=== PATIENT | male | born 1970 | race American Indian/Alaskan Native ===

== ENCOUNTER 2017-10-07 17:11 | Emergency (ER) | payer MEDICAID ==
[2017-10-07] MEDS ORDERED: NS 1,000 ML IV ONE (17:15)
--- NOTE | 2017-10-07 17:20 | EDPHY ---
HPI/HX/ROS/PE/MDM Narrative: CHIEF COMPLAINT: Vomiting, lightheaded, flank pain HPI: The patient is an anticoagulated 47 y/o male complaining of intermittent vomiting and right-sided flank pain for the last week worsening over the last day and specifically over the last 3 hours today. His medical history includes atrial flutter, CHF, and alcoholism. He also complains of right flank pain that feels "like a muscle spasm" and reports "pink" urine. He has some abdominal discomfort that he describes feeling "like I took too many aspirins." He denies chest pain, dyspnea, recent illness, recent trauma. REVIEW OF SYSTEMS: Aside from elements discussed in the HPI, a comprehensive 10-point review of systems was reviewed and is negative. PMH: Atrial flutter - Xarelto, CHF, alcoholism, non-ischemic cardiomyopathy with moderately reduced LV systolic function on cath 07/12/16. SOCIAL HISTORY: Last alcohol use 12 years ago, but mentions "nips" of alcohol getting on his skin from his friends. PCP: [facility], President And Chief Executive Officer: Dr. Simmons. Prior medical records reviewed including [facility] H&P 06/24/16. PHYSICAL EXAM: General:Patient is alert, in no acute distress. ENT:Eyes are normal to inspection. ENT inspection normal. Neck: Normal inspection. Full range of motion. Respiratory:No respiratory distress. Breath sounds normal bilaterally. Cardiovascular: Regular rate and rhythm. Strong peripheral pulses. Normal cap refill. Abdomen:The abdomen is nontender to palpation. There are no peritoneal signs. Back: No CVA tenderness, otherwise normal to inspection. No tenderness to palpation. Skin: Normal color. No rash. Warm and dry. Extremities: Normal appearance. Full range of motion. Neuro: Oriented x3. Normal motor function. Normal sensory function. ED Course: This is an anticoagulated 47 y/o male with atrial flutter and history of alcoholism complaining of a one-week history of intermittent vomiting and right- sided flank pain that worsened over the last day. He reports associated "pink" urine and has right CVA tenderness on exam. His abdomen is benign. Presentation could indicate kidney stone. Plan for IV, labs, UA, EKG, and symptom management. 500mL IV NS and 4mg IV Zofran ordered. The 12 lead EKG was interpreted by myself. Sinus rhythm with runs of PACs. Rate between 45-65. Compared to prior EKGs. See hard copy and/or "tracemaster" electronic copy for interpretation. Patient is continuing to vomiting. 10mg IV Reglan ordered. Abdominal CT shows nothing acute. Labs are largely unremarkable. Plan for PO challenge. Patient has been able to keep down water without issue and feels ready for discharge. He will be discharged with script for Zofran and standard care and follow up instructions. Return precautions discussed. MDM: This patient presents with paroxysms of loud vomiting of unknown etiology. His labs are unremarkable except for findings consistent with chronic liver disease - there is no evidence of pancreatitis. CTAP is negative for bowel obstruction or surgical process. Patients's symptoms controlled with IVNS and zofran and he is now able to eat and drink without difficulty. - Data Points Imaging: Discussed imaging studies w/ support services tech Radiologist, I viewed and interpreted images myself Laboratory Results: Laboratory Results 10/07/17 17:45 10/07/17 17:45 10/07/17 10/07/17 10/07/17 18:25 17:45 17:45 WBC 6.78 10^3/uL 10^3/uL (3.80-9.50) RBC 4.54 10^6/uL 10^6/uL (4.40-6.38) Hgb 13.9 g/dL g/dL (13.7-17.5) Hct 40.9 % % (40.0-51.0) MCV 90.1 fL fL (81.5-99.8) MCH 30.6 pg pg (27.9-34.1) MCHC 34.0 g/dL g/dL (32.4-36.7) RDW 15.4 % H % (11.5-15.2) Plt Count 116 10^3/uL L 10^3/uL (150-400) MPV 12.2 fL H fL (8.7-11.7) Neut % (Auto) 76.6 % H % (39.3-74.2) Lymph % (Auto) 15.3 % % (15.0-45.0) Wirt % (Auto) 6.3 % % (4.5-13.0) Eos % (Auto) 0.9 % % (0.6-7.6) Baso % (Auto) 0.6 % % (0.3-1.7) Nucleat RBC Rel Count 0.0 % % (0.0-0.2) Absolute Neuts (auto) 5.19 10^3/uL 10^3/uL (1.70-6.50) Absolute Lymphs (auto) 1.04 10^3/uL 10^3/uL (1.00-3.00) Absolute Monos (auto) 0.43 10^3/uL 10^3/uL (0.30-0.80) Absolute Eos (auto) 0.06 10^3/uL 10^3/uL (0.03-0.40) Absolute Basos (auto) 0.04 10^3/uL 10^3/uL (0.02-0.10) Absolute Nucleated RBC 0.00 10^3/uL 10^3/uL (0-0.01) Immature Gran % 0.3 % % (0.0-1.1) Immature Gran # 0.02 10^3/uL 10^3/uL (0.00-0.10) Sodium 137 mEq/L mEq/L (135-145) Potassium 3.6 mEq/L mEq/L (3.5-5.2) Chloride 101 mEq/L mEq/L (97-110) Carbon Dioxide 24 mEq/l mEq/l (22-31) Anion Gap 12 mEq/L mEq/L (8-16) BUN 27 mg/dL H mg/dL (7-23) Creatinine 1.1 mg/dL mg/dL (0.7-1.3) Estimated GFR > 60 Glucose 156 mg/dL H mg/dL (70-100) Calcium 9.4 mg/dL mg/dL (8.5-10.4) Total Bilirubin 3.5 mg/dL H mg/dL (0.1-1.4) Conjugated Bilirubin 1.0 mg/dL H mg/dL (0.0-0.5) Unconjugated Bilirubin 2.5 mg/dL H mg/dL (0.0-1.1) AST 40 IU/L IU/L (17-59) ALT 40 IU/L IU/L (21-72) Alkaline Phosphatase 136 IU/L H IU/L (38-126) Total Protein 7.2 g/dL g/dL (6.3-8.2) Albumin 4.2 g/dL g/dL (3.5-5.0) Lipase 152 IU/L IU/L (23-300) Urine Color YELLOW Urine Appearance CLEAR Urine pH 6.0 (5.0-7.5) Ur Specific [place] 1.008 (1.002-1.030) Urine Protein NEGATIVE (NEGATIVE) Urine Ketones NEGATIVE (NEGATIVE) Urine Blood NEGATIVE (NEGATIVE) Urine Nitrate NEGATIVE (NEGATIVE) Urine Bilirubin NEGATIVE (NEGATIVE) Urine Urobilinogen 4.0 EU H EU (0.2-1.0) Ur Leukocyte Esterase NEGATIVE (NEGATIVE) Urine Glucose NEGATIVE (NEGATIVE) Medications Given: Discontinued Medications Sodium Chloride (Ns) 1,000 mls @ 0 mls/hr IV EDNOW ONE; Wide Open PRN Reason: Protocol Stop: 10/07/17 17:16 Last Admin: 10/07/17 18:13 Dose: 1,000 mls Metoclopramide HCl (Reglan Injection) 10 mg IVP EDNOW ONE Stop: 10/07/17 17:58 Last Admin: 10/07/17 18:13 Dose: 10 mg Ondansetron HCl (Zofran) 4 mg IVP EDNOW ONE Stop: 10/07/17 17:28 Last Admin: 10/07/17 18:14 Dose: 4 mg General Time Seen by Provider: 10/07/17 17:12 Initial Vital Signs: Initial Vital Signs Heart Rate 57 L 10/07/17 17:19 Respiratory Rate 16 10/07/17 17:19 Blood Pressure 114/75 10/07/17 17:19 O2 Delivery Mode Room Air Allergies/Adverse Reactions: No Known Allergies Allergy (Unverified 05/28/16 05:32) Home Medications: Medication Instructions Recorded Metoprolol Succinate 10/07/17 Potassium Chloride 10/07/17 Spironolactone 10/07/17 Torsemide 10/07/17 Xarelto 10/07/17 Departure - Departure Disposition: Home, Routine, Self-Care Clinical Impression: Vomiting, Back pain Condition: Good Instructions: Ondansetron (By mouth), Acute Nausea and Vomiting (ED), Flank Pain (ED) Additional Instructions: 1. Take Zofran as prescribed for nausea and vomiting. 2. Follow up with your primary care provider this week for unimproved symptoms. 3. Return to the ED for worsening of condition. Referrals: James Muse MD [Primary Care Provider] - As per Instructions Report Scribed for: Ric Saucedo Report Scribed by: Kaity Vaca Date of Report: 10/07/17 Time of Report: 17:32 Physician Review and Approval Statement: Portions of this note were transcribed by an ED scribe. I personally performed the history, physical exam, and medical decision making; and confirm the accuracy of the information in the transcribed note.
[2017-10-07 17:22] VITALS: RESP 16
[2017-10-07] MEDS ORDERED: ONDANSETRON 4 MG/2 ML VIAL IVP ONE (17:27)
--- NOTE | 2017-10-07 17:41 | CPEKG ---
Heart Rate: 67 RR Interval: 896 P-R Interval: 262 QRSD Interval: 102 QT Interval: 392 QTC Interval: 414 P [place]: 0 QRS [place]: 119 T Wave Shannon: -80 EKG Severity - ABNORMAL ECG - EKG Impression: UNKNOWN RHYTHM, IRREGULAR RATE 51-88 EKG Impression: FIRST DEGREE AV BLOCK EKG Impression: CONSIDER RVH W/ SECONDARY REPOL ABNORMALITY Electronically Signed By: Ric Saucedo 08-Oct-2017 20:33:07
[2017-10-07] MEDS ORDERED: METOCLOPRAMIDE 10 MG/2 ML VIAL IVP ONE (17:57)
[2017-10-07 17:59] LABS: PLATELET COUNT 116 10^3/uL (150-400)
[2017-10-07] MEDS ORDERED: ONDANSETRON 4MG PREPACK#2 BTL TAKEHOME ONE (19:43)
[2017-10-07 20:08] VITALS: BP 134/76; PULSE 55; TEMP 98.1; O2SAT 95
== END 2017-10-07 19:57 | disposition home or self-care (01) ==
DX: R11.10 Vomiting, unspecified (principal); M54.9 Dorsalgia, unspecified; I50.9 Heart failure, unspecified; E86.9 Volume depletion, unspecified
CPT/HCPCS: 96374; J2405; J2765

== ENCOUNTER 2017-10-18 09:30 | Day surgery (SDC) | payer MEDICAID ==
[2017-10-18] MEDS ORDERED: ATROPINE SULFATE 1 MG/10 ML SYR IVP ONE (09:34)
[2017-10-18] MEDS ORDERED: NS 1,000 ML IV ONE (09:34)
--- NOTE | 2017-10-18 09:52 | CPEKG ---
Heart Rate: 90 RR Interval: 667 P-R Interval: 133 QRSD Interval: 104 QT Interval: 416 QTC Interval: 509 P [place]: 0 QRS [place]: 120 T Wave [place]: 244 EKG Severity - ABNORMAL ECG - EKG Impression: SINUS RHYTHM EKG Impression: VENTRICULAR PREMATURE COMPLEX EKG Impression: CONSIDER RVH W/ SECONDARY REPOL ABNORMALITY EKG Impression: PROBABLE INFERIOR INFARCT, AGE INDETERMINATE EKG Impression: LATERAL LEADS ARE ALSO INVOLVED EKG Impression: PROLONGED QT INTERVAL Electronically Signed By: Bobo Duran 18-Oct-2017 11:22:44
[2017-10-18 10:22] LABS: INR 2.75 (0.83-1.16)
--- NOTE | 2017-10-18 11:51 | PDHPUP ---
History & Physical Update H&P update statement: This history and physical update is based on an assessment of the patient which was completed after admission or registration (within 24 hours), but prior to the surgery/procedure. H&P update: H&P reviewed & patient examined, no change in patient's condition since H&P completed
[2017-10-18] MEDS ORDERED: ATROPINE SULFATE 1 MG/10 ML SYR ONE (12:14)
--- NOTE | 2017-10-18 12:22 | PDANEPAE ---
ANE History of Present Illness a flutter ANE Past Medical History - Cardiovascular History Hx Arrhythmias: Yes - Pulmonary History Hx Oxygen in Use at Home: No Hx Sleep Apnea: No - Endocrine History Hx Diabetes: No ANE Review of Systems Review of Systems: ANE Patient History - Allergies Allergies/Adverse Reactions: No Known Allergies Allergy (Verified 10/16/17 10:50) - Home Medications Home Medications: Potassium Chloride 20 meq 10/07/17 [Last Taken 1 Day Ago ~10/17/17] Spironolactone 25 mg 10/07/17 [Last Taken 1 Day Ago ~10/17/17] Torsemide 60 mg 10/07/17 [Last Taken 1 Day Ago ~10/17/17] Xarelto 20 mg 10/07/17 [Last Taken 1 Day Ago ~10/17/17] - Smoking Hx Smoking Status: Former smoker ANE Labs/Vital Signs - Labs Result Diagrams: 10/18/17 10:00 - Vital Signs Height: 162.56 cm Weight: 68.039 kg ANE Physical Exam - Airway Neck exam: FROM Mallampati Score: Class 2 Mouth exam: normal dental/mouth exam - Pulmonary Pulmonary: no respiratory distress - Cardiovascular Cardiovascular: regular rate and rhythym - ASA Status ASA Status: III ANE Anesthesia Plan Total IV Anesthesia: Yes
[2017-10-18] MEDS ORDERED: PROPOFOL 200 MG/20 ML VIAL ONE ×2 (12:23)
--- NOTE | 2017-10-18 12:54 | PDTEE1 ---
LIZANDRO Cardioversion Procedure Procedure: electrical cardioversion, transesophageal echo Indications: other (atrial flutter ) Procedural Details: Sedation was provided by Dr. Hill. Pads were placed in anterior-posterior position. LIZANDRO probe was advanced and standard images obtained. There is no evidence of left atrial or left atrial appendage thrombus. Synchronized cardioversion attempt #1: 200J Results: other (NSR with PACs) Conclusions: successful LIZANDRO cardioversion
--- NOTE | 2017-10-18 12:55 | POSTANESTH ---
Post Anesthetic Evaluation Cardiovascular Status: Normal, Stable Respiratory Status: Normal, Stable Level of Consciousness/Mental Status: Can Participate in Eval Pain Control: Adequate, Prn Tx Ordered Nausea/Vomiting Control: Adequate, Prn Tx Ordered Complications Possibly Related to Anesthesia: None Noted
--- NOTE | 2017-10-18 12:58 | CPEKG ---
Heart Rate: 60 RR Interval: 1000 P-R Interval: 160 QRSD Interval: 88 QT Interval: 444 QTC Interval: 444 P [place]: -8 QRS [place]: 114 T Wave [place]: 210 EKG Severity - ABNORMAL ECG - EKG Impression: UNKNOWN RHYTHM, IRREGULAR RATE 53-70 EKG Impression: CONSIDER RVH W/ SECONDARY REPOL ABNORMALITY EKG Impression: ABNORMAL T, CONSIDER ISCHEMIA, LATERAL LEADS Electronically Signed By: Bobo Duran 18-Oct-2017 14:34:25
== END 2017-10-18 14:14 | disposition home or self-care (01) ==
LOC: FCATH 09:30
PROVIDERS: ATTEND Internal Medicine Cardiovascular Disease
PROC: B245ZZ4 Ultrasonography of Left Heart, Transesophageal (ICD-10-PCS; principal; 2017-10-18)
PROC: 5A2204Z Restoration of Cardiac Rhythm, Single (ICD-10-PCS; principal; 2017-10-18)
DX: I48.0 Paroxysmal atrial fibrillation (principal); I11.0 Hypertensive heart disease with heart failure; I50.9 Heart failure, unspecified; F12.90 Cannabis use, unspecified, uncomplicated; Z72.89 Other problems related to lifestyle; Z87.891 Personal history of nicotine dependence
CPT/HCPCS: J0461; J2704

== ENCOUNTER 2017-10-30 18:55 | Emergency (ER) | payer MEDICAID ==
[2017-10-30 19:00] VITALS: BP 97/72
[2017-10-30] MEDS ORDERED: AMOXICILLIN/CLAVULANATE POT 875/125 MG TAB PO ONE (19:07)
--- NOTE | 2017-10-30 19:07 | EDPHY ---
H & P Time Seen by Provider: 10/30/17 19:00 HPI/ROS: CHIEF COMPLAINT: Left leg swelling HISTORY OF PRESENT ILLNESS: Dog bite on 10/25 from [facility], immunizations up- to-date. 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 He still is on Xarelto for cardiac dysrhythmia. REVIEW OF SYSTEMS: No fevers or chills. No weakness or numbness in the foot, no foreign body sensation PAST MEDICAL HISTORY: Atrial flutter, nonischemic cardiomyopathy Social history: No alcohol for 12 years per the patient General Appearance: Alert and conversant, cooperative. Ambulatory. Left lower leg has 4 cm slightly red and warm area surrounding central dog bite puncture wound. No lymphangitis no crepitus. Compartments in the lower leg are soft. No fluctuance. Mildly indurated. Emergency Department course/MDM: Oral Augmentin prescribed and started in the emergency department. Does not clinically have fasciitis or deep space infection or abscess. Reasonable to try outpatient oral antibiotics. Smoking Status: Former smoker Constitutional: Initial Vital Signs Temperature (C) 36.8 C 10/30/17 18:58 Heart Rate 60 10/30/17 18:58 Respiratory Rate 18 10/30/17 18:58 Blood Pressure 97/72 L 10/30/17 18:58 O2 Sat (%) 96 10/30/17 18:58 O2 Delivery Mode Room Air Allergies/Adverse Reactions: No Known Allergies Allergy (Verified 10/30/17 18:57) Home Medications: Medication Instructions Recorded Potassium Chloride 20 meq 10/07/17 Spironolactone 25 mg 10/07/17 Torsemide 60 mg 10/07/17 Xarelto 20 mg 10/07/17 Amoxicillin/Clavulanate Pot 875 mg PO BID #20 tab 10/30/17 [Augmentin 875 mg tab] MDM/Departure - Depart Disposition: Home, Routine, Self-Care Clinical Impression: Dog bite of left lower leg with infection Qualifiers: Encounter type: initial encounter Qualified Code(s): S81.852A - Open bite, left lower leg, initial encounter Condition: Good Instructions: Amoxicillin/Clavulanate Potassium (By mouth) Additional Instructions: Rest your left leg for the next 48 hr if possible. Finish the antibiotics. Return for worsening leg pain or swelling or fever. Prescriptions: Amoxicillin/Clavulanate Pot [Augmentin 875 mg tab] 875 mg PO BID #20 tab Referrals: James Muse MD [Primary Care Provider] - As per Instructions
== END 2017-10-30 19:16 | disposition home or self-care (01) ==
DX: S81.852A Open bite, left lower leg, initial encounter (principal); L08.9 Local infection of the skin and subcutaneous tissue, unspecified; Z87.891 Personal history of nicotine dependence; W54.0XXA Bitten by dog, initial encounter

== ENCOUNTER 2017-11-06 07:03 | Emergency (ER) | payer MEDICAID ==
[2017-11-06] MEDS ORDERED: SULFAMETHOX/TMP 800/160 MG 1 TAB PO ONE (07:41)
--- NOTE | 2017-11-06 07:44 | EDPHY ---
H & P Stated Complaint: dog bite ,more red/swollen Time Seen by Provider: 11/06/17 07:30 HPI/ROS: CHIEF COMPLAINT: Wound infection HISTORY OF PRESENT ILLNESS: The patient is a 47-year-old man with a history of atrial fibrillation on Xarelto who was bitten by a small dog on his left calf on the of this month. He came in a few days later with a wound infection and was started on Augmentin. His infection had been getting better however over the last 2 days it began to spread and become more painful. He has not had a fever. No vomiting. REVIEW OF SYSTEMS: Constitutional: denies: chills, fever, recent illness, recent injury EENTM: denies: blurred vision, double vision, nose congestion Respiratory: denies: cough, shortness of breath Cardiac: denies: chest pain, irregular heart rate, lightheadedness, palpitations Gastrointestinal/Abdominal: denies: abdominal pain, diarrhea, nausea, vomiting, blood streaked stools Genitourinary: denies: dysuria, frequency, hematuria, pain Musculoskeletal: denies: joint pain, muscle pain see HPI denies: lesions, rash, jaundice, bruising Neurological: denies: headache, numbness, paresthesia, tingling, dizziness, weakness Hematologic/Lymphatic: denies: blood clots, easy bleeding, easy bruising Immunologic/allergic: denies: HIV/AIDS, transplant EXAM: GENERAL: Well-appearing, well-nourished and in no acute distress. HEAD: Atraumatic, normocephalic. EYES: Pupils equal round and reactive to light, extraocular movements intact, sclera anicteric, conjunctiva are normal. ENT: TMs normal, nares patent, oropharynx clear without exudates. Moist mucous membranes. NECK: Normal range of motion, supple without lymphadenopathy or JVD. LUNGS: Breath sounds clear to auscultation bilaterally and equal. No wheezes rales or rhonchi. HEART: Regular rate and rhythm without murmurs, rubs or gallops. ABDOMEN: Soft, nontender, normoactive bowel sounds. No guarding, no rebound. No masses appreciated. BACK: No CVA tenderness, no spinal tenderness, step-offs or deformities EXTREMITIES: Normal range of motion, no pitting or edema. No clubbing or cyanosis. NEUROLOGICAL: Cranial nerves II through XII grossly intact. Normal speech, normal gait. 5/5 strength, normal movement in all extremities, normal sensation PSYCH: Normal mood, normal affect. SKIN: Left calf region with healing wound but surrounding cellulitis extending distally from the wound. Fluctuance at the wound site. Slightly warm. Source: Patient Exam Limitations: No limitations - Personal History Tetanus Vaccine Date: < 10 years - Medical/Surgical History Hx Asthma: No Hx Chronic Respiratory Disease: No Hx Diabetes: No Hx Cardiac Disease: No Hx Renal Disease: No Hx Cirrhosis: No Hx Alcoholism: Yes Hx HIV/AIDS: No Hx Splenectomy or Spleen Trauma: No Other PMH: HEART FLUTTER, hernia repair, hip necrosis. ALCOHOLIC -- SOBER FOR 8 YEARS - Family History Significant Family History: No pertinent family hx - Social History Smoking Status: Former smoker Alcohol Use: Sober Drug Use: None Constitutional: Initial Vital Signs Temperature (C) 36.4 C 11/06/17 07:07 Heart Rate 92 11/06/17 07:07 Respiratory Rate 18 11/06/17 07:07 Blood Pressure 115/78 11/06/17 07:07 O2 Sat (%) 95 11/06/17 07:07 O2 Delivery Mode Room Air Allergies/Adverse Reactions: No Known Allergies Allergy (Verified 11/06/17 07:07) Home Medications: Medication Instructions Recorded Potassium Chloride 20 meq 10/07/17 Spironolactone 25 mg 10/07/17 Torsemide 60 mg 10/07/17 Xarelto 20 mg 10/07/17 Amoxicillin/Clavulanate Pot 875 mg PO BID #20 tab 10/30/17 [Augmentin 875 mg tab] Sulfamethox/Tmp 800/160 mg 1 tab PO BID #14 tab 11/06/17 [Bactrim Ds] Medical Decision Making Procedures: Procedure: Abscess drainage. The patient's abscess was located on the left leg. I obtained verbal consent from the patient to drain the abscess who was informed about the possibility of bleeding and pain. The abscess was incised with 11 blade scalp and 5 cc of purulent drainage was expressed. I irrigated the wound and placed some packing. The patient tolerated the procedure well. The procedure was performed by myself. ED Course/Re-evaluation: The patient has developed an abscess at the site of his dog bite and wound infection. He is still on Augmentin. I will add Bactrim. He does not wish to have an IV and would like to go back to work. He is well appearing generally. He will require I and D. 8:10 a.m. the patient tolerated I and D well. A significant amount of purulence was drained and culture sent to lab. I will start the patient on Bactrim. We discussed inpatient versus outpatient. He declines inpatient or IV antibiotics. He would like a work note. Differential Diagnosis: Partial list of the Differential diagnosis considered include but were not limited to; abscess, cellulitis, by infection, and although unlikely based on the history and physical exam, I also considered vasculitis, DVT, foreign body. I discussed these differential diagnoses and the plan with the patient as well as the usual and expected course. The patient understands that the diagnosis is provisional and that in medicine we are not always correct and that further workup is often warranted. Usual and customary warnings were given. All of the patient's questions were answered. The patient was instructed to return to the emergency department should the symptoms at all worsen or return, otherwise to followup with the physician as we discussed. - Data Points Microbiology Results: MICROBIOLOGY 11/06/17 08:15 Leg - Anaerobic Tube/Swab Gram Stain - Final Medications Given: Discontinued Medications Trimethoprim/Sulfamethoxazole (Bactrim Ds) 1 ea PO EDNOW ONE PRN Reason: Protocol Stop: 11/06/17 07:42 Last Admin: 11/06/17 08:13 Dose: 1 ea Departure - Departure Disposition: Home, Routine, Self-Care Clinical Impression: Wound abscess Qualifiers: Encounter type: initial encounter Qualified Code(s): T81.4XXA - Infection following a procedure, initial encounter Condition: Fair Instructions: Abscess (ED) Referrals: James Muse MD [Primary Care Provider] - As per Instructions Stand Alone Forms: Work Excuse Prescriptions: Sulfamethox/Tmp 800/160 mg [Bactrim Ds] 1 tab PO BID #14 tab
[2017-11-06 08:21] VITALS: BP 120/80
== END 2017-11-06 08:22 | disposition home or self-care (01) ==
PROC: 0H9LXZZ Drainage of Left Lower Leg Skin, External Approach (ICD-10-PCS; principal; 2017-11-06)
DX: L02.416 Cutaneous abscess of left lower limb (principal); Z79.01 Long term (current) use of anticoagulants; Z87.891 Personal history of nicotine dependence

== ENCOUNTER 2017-11-12 18:08 | Emergency (ER) | payer MEDICAID ==
[2017-11-12 18:27] VITALS: BP 96/66
--- NOTE | 2017-11-12 18:54 | EDPHY ---
H & P Time Seen by Provider: 11/12/17 18:44 HPI/ROS: CHIEF COMPLAINT: Wound check HISTORY OF PRESENT ILLNESS: 47-year-old male in the ER for wound check for dog bite to his left calf which occur on the of this month. He was seen in the ER subsequently on , never returned for wound packing removal. He is in the ER for wound check. He feels the area is improving well. He has taken his medications as directed. PHYSICAL EXAM (Prior to examination, patient consented to physical exam, hands were washed and my usual and customary physical exam procedures followed) 1) GENERAL: Well-developed, well-nourished, alert and oriented. Appears to be in no acute distress. 2) HEAD: Normocephalic 3) HEENT: sclera anicteric 4) LUNGS: Breathing comfortably. 5) SKIN: Left calf packing in removed by myself. Wound is granulating appropriately with no signs of infection, no erythema, no lymphangitic streaking , no crepitus. Soft compartments. Smoking Status: Former smoker Constitutional: Initial Vital Signs Temperature (C) 37.3 C 11/12/17 18:12 Heart Rate 87 11/12/17 18:12 Respiratory Rate 17 11/12/17 18:12 Blood Pressure 96/66 L 11/12/17 18:12 O2 Sat (%) 97 11/12/17 18:12 O2 Delivery Mode Room Air Allergies/Adverse Reactions: No Known Allergies Allergy (Verified 11/12/17 18:11) Home Medications: Medication Instructions Recorded Potassium Chloride 20 meq 10/07/17 Spironolactone 25 mg 10/07/17 Torsemide 60 mg 10/07/17 Xarelto 20 mg 10/07/17 Amoxicillin/Clavulanate Pot 875 mg PO BID #20 tab 10/30/17 [Augmentin 875 mg tab] Sulfamethox/Tmp 800/160 mg 1 tab PO BID #14 tab 11/06/17 [Bactrim Ds] MDM/Departure - MDM ED Course/Re-evaluation: This patient's wound is healing appropriately. No signs of infection. His packing has been removed, Band-Aid applied. No further intervention at this time. Usual and customary wound precautions and instructions provided. Care of patient under supervision of secondary supervising physician Dr Acuna. - Depart Disposition: Home, Routine, Self-Care Clinical Impression: Visit for wound check Condition: Good Instructions: Wound Infection (ED) Additional Instructions: Return to the ER if you develop redness, swelling, discharge, warmth to the wound, red streaks going up your leg, or any other symptoms that concern you. Referrals: James Muse MD [Primary Care Provider] - 2-3 days, call for appt.
== END 2017-11-12 19:00 | disposition home or self-care (01) ==
DX: Z48.01 Encounter for change or removal of surgical wound dressing (principal); Z87.891 Personal history of nicotine dependence
CPT/HCPCS: G0463

== ENCOUNTER 2017-11-30 06:32 | Observation (INO) | payer MEDICAID ==
[2017-11-30] MEDS ORDERED: ceFAZolin 2 GM/SWFI 2 GM/20 ML SYR IVP ONE (06:38)
[2017-11-30] MEDS ORDERED: NS 1,000 ML IV ONE (06:38)
[2017-11-30] MEDS ORDERED: BACITRACIN IRRIGATION/NS 50,000 UNITS/1,000 ML BTL IRR ONE (06:38)
--- NOTE | 2017-11-30 06:55 | CPEKG ---
Heart Rate: 72 RR Interval: 833 QRSD Interval: 112 QT Interval: 460 QTC Interval: 504 QRS [place]: 103 T Wave [place]: 221 EKG Severity - ABNORMAL ECG - EKG Impression: ATRIAL Flutter with variable block EKG Impression: INCOMPLETE RIGHT BUNDLE BRANCH BLOCK EKG Impression: ST DEPRESSION, CONSIDER ISCHEMIA, DIFFUSE LDS Electronically Signed By: Salvador Jacobsen 30-Nov-2017 08:29:55
[2017-11-30 07:12] LABS: PLATELET COUNT 145 10^3/uL (150-400)
[2017-11-30 07:19] LABS: INR 1.2 (0.83-1.16); PROTIME(PATIENT) 15.4 SEC (12.0-15.0)
[2017-11-30] MEDS ORDERED: MIDAZOLAM 2 MG/2 ML VIAL IVP ONE (08:19)
--- NOTE | 2017-11-30 08:19 | PDANEPAE ---
ANE History of Present Illness here for AF ablation PM placement ANE Past Medical History Past Medical History: history of AF, NICM, MJ use - Cardiovascular History Hx Hypertension: No Hx Arrhythmias: Yes Hx Chest Pain: No Hx Coronary Artery / Peripheral Vascular Disease: No Hx CHF / Valvular Disease: No Hx Palpitations: Yes Cardiovascular History Comment: history of NICM - Pulmonary History Hx COPD: No Hx Asthma/Reactive Airway Disease: No Hx Recent Upper Respiratory Infection: No Hx Oxygen in Use at Home: No Hx Sleep Apnea: No - Endocrine History Hx Diabetes: No Hypothyroid: No Hyperthyroid: No Obesity: no - Renal History Hx Renal Disorders: No - Liver History Hx Hepatic Disorders: No - Neurological & Psychiatric Hx Hx Neurological and Psychiatric Disorders: No - Cancer History Hx Cancer: No - Congenital Disorder History Hx Congenital Disorders: No - GI History GERD: no Hx Gastrointestinal Disorders: No - Chronic Pain History Chronic Pain: No - Surgical History Prior Surgeries: skin graft ANE Review of Systems Review of systems is: negative Review of Systems: - Exercise capacity Exercise capacity: >=4 METS ANE Patient History - Allergies Allergies/Adverse Reactions: No Known Allergies Allergy (Verified 11/12/17 18:11) - Home Medications Home medications: home medication list seen and reviewed Home Medications: Potassium Cl [Klor-Con 20 meq (*)] 20 meq PO DAILY #0 10/07/17 [Last Taken 1 Day Ago ~11/29/17] Rivaroxaban [Xarelto 10mg (*)] 20 mg PO DAILY #0 10/07/17 [Last Taken 11/27/17] Spironolactone [Aldactone 25 MG (*)] 25 mg PO DAILY #0 10/07/17 [Last Taken 1 Day Ago ~11/29/17] Torsemide [Demadex] 60 mg PO DAILY #0 10/07/17 [Last Taken 1 Day Ago ~11/29/17] - NPO status NPO Status: no food or drink >8 hours - Anes Hx Anes Hx: no prior problems - Smoking Hx Smoking Status: Former smoker Marijuana use: Yes - Alcohol Use Alcohol Use: None - Family Anes Hx Family Anes Hx: none ANE Labs/Vital Signs - Labs Result Diagrams: 11/30/17 06:53 11/30/17 06:53 - Vital Signs Vital Signs: reviewed preoperatively; see RN documention for details Height: 162.56 cm Weight: 65.771 kg ANE Physical Exam - Airway Neck exam: FROM Mallampati Score: Class 1 Mouth exam: normal dental/mouth exam - Pulmonary Pulmonary: no respiratory distress - Cardiovascular Cardiovascular: regular rate and rhythym - ASA Status ASA Status: III ANE Anesthesia Plan Anesthesia Plan: general endotracheal anesthesia Total IV Anesthesia: No
[2017-11-30] MEDS ORDERED: PROPOFOL/EMULSION 500 MG/50 ML BOTTLE IV ONE (08:58)
[2017-11-30] MEDS ORDERED: fentaNYL 100 MCG/2 ML INJ ONE ×3 (09:02→11:33)
[2017-11-30] MEDS ORDERED: PHENYLEPHRINE HCL 100 MCG/ML SYR ONE (10:13)
[2017-11-30] MEDS ORDERED: EPINEPHrine 1 MG/ML INJ ONE (10:13)
[2017-11-30] MEDS ORDERED: IOPAMIDOL (ISOVUE-300) 100 ML BTL ONE (10:25)
--- NOTE | 2017-11-30 12:00 | EPPROC ---
Electrophysiology Procedure Note: Procedures performed: 1. Fluoroscopy 2. EP evaluation with RA/RV/LA pace/record, with arrhythmia induction 3. EP evaluation with RA/RV pace record, insert/reposition catheter, with arrhythmia induction INDICATION: Pt with atrial tachycardia/ atrial flutter with 3:1 block with symptoms of SOA. In view of this it was decided to eval with EP study with possibility of ablation. PROCEDURE: Catheters & Anesthesia: The patient arrived in the Electrophysiology Laboratory in the fasting state. The right clavicular region, right groin, & left groin area were prepped & draped in the usual sterile manner. Anesthesiologist administered general anesthesia. Appropriate non-invasive blood pressure, pulse oximetry & end- tidal CO2 monitoring was established. All catheters were placed percutaneously using the modified Seldinger technique , and advanced into position under fluoroscopic guidance. One #6 Yi decapolar catheter was attempted to be placed in the CS and other in ALRA position. The atrial were very generous in size. We could not position the catheters. Ablation catheter J curve advanced and we could advanced to the CS os but not advance it much further. Rodri catheter technique of attempting to place the decapolar catheter did not work. While attempting positioning the catheters over a 50 min period, the tachycardia terminated likely due to mechanical stimulation and once it terminated pt had a significant pause. when the tachycardia returned, it was a different morphology. Considering tachycardia of different morphology, the pause noted, and the bradycardia noted in the clinical setting, it was decided to hold off on ablation since other arrhythmias will emerge considering the atriopathy. Hence it was decided to just implant the pacemaker as was planned and start antiarrhythmics. Balloon tipped catheter was placed in the RV and pt was paced, while preparing for pacemaker implant. Good numbers were obtained. CONCLUSIONS 1. More than one atrial arrhythmias 2. Sick sinus syndrome with significant pause 3. Significant atriopathy with enlarged atrial
--- NOTE | 2017-11-30 12:04 | EPPROC ---
Electrophysiology Procedure Note: PROCEDURE PERFORMED: 1. Implantation of an A/V Pacemaker 2. Subclavian vein angiography 3. Fluoroscopy INDICATION: This is a patient with cardiomyopathy, sick sinus syndrome who could not tolerate BB due to SSS. The pt had generous atria and multiple AT. Hence it was decided to place Dual chamber pacemaker with plans to start BB and antiarrhythmics. PROCEDURE NOTE: Patient presented to the cardiac catheterization laboratory in a fasting, post absorptive state . EP RN administered sedation. The left infraclavicular area was prepped and draped in the usual sterile fashion. Lidocaine plus bupivacaine was used for local anesthesia. Left subclavian venography was performed by injection of iodinated contrast into the left antecubital vein. This was done to assure patency of the vein and also to assess for any anatomical aberrations. Using a combination of blunt and sharp dissection and electrocautery, the dissection was carried down to the prepectoral fascia. Fluoroscopy was utilized during the entire procedure for venous access and placement of the leads. Using a direct stick technique the left cephalic vein was accessed. Placement of the guidewires into the venous system was confirmed by low-pressure blood return and also by visualizing the guidewires advancing into the inferior vena cava. A purse string suture was applied around the guidewires. Two #7 Georgian sheaths were advanced under fluoroscopic guidance over the guidewire. An active fixation ventricular lead was advanced into the right ventricular apex and screwed in place. An active fixation atrial lead was advanced into the right atrial appendage and screwed in place. The peel away sheaths were removed. Pacing thresholds, sensing parameters and lead impedances were measured. There was no diaphragmatic stimulation at maximum output. The leads were sutured to the prepectoral fascia with 3 nonabsorbable sutures each. The pocket was again inspected for any bleeding. The leads were attached to the pacemaker securely. The pacemaker was inserted into the pocket and secured in place with a nonabsorbable suture. Fluoroscopy was performed in URBINA and TURKISH planes to verify right-sided placement of the leads. Also fluoroscopy of the pacemaker pocket was performed. The pacemaker pocket was closed in 3 layers with absorbable monocryl sutures and anil. Appropriate dressing was applied. The patient left the cardiac catheterization laboratory in stable condition. Serial Numbers: 1. Device: St Vickey Assurity MRI SN [id number] 2. Atrial Lead: St Vickey 2088TC SN [id number] 3. Ventricular Lead: St Vickey 2088TC SN [id number] Stimulation Thresholds & Impedance Measurements: 1. Atrial Lead 2.8mV, 0.4@0.5ms, 396Ohms 2. Ventricular Lead 5.5mV, 0.7@0.5ms, 620Ohms Samir Pacing Parameters 1. Pacing mode: DDDR 2. Lower rate: 60ppm 3. Upper tracking rate: 130 ppm 4. Upper sensor rate: 130 ppm
[2017-11-30] MEDS ORDERED: ONDANSETRON 4 MG/2 ML VIAL ONE (12:24)
--- NOTE | 2017-11-30 14:20 | CPEKG ---
Heart Rate: 66 RR Interval: 909 P-R Interval: 212 QRSD Interval: 100 QT Interval: 484 QTC Interval: 508 P [place]: 12 QRS [place]: 106 T Wave [place]: 217 EKG Severity - ABNORMAL ECG - EKG Impression: A-V DUAL-PACED COMPLEXES W/ SOME INHIBITION Electronically Signed By: Salvador Jacobsen 01-Dec-2017 07:37:57
[2017-11-30] MEDS: AMIODARONE HCL 200 MG TAB PO SCH ×2 (15:08→20:23)
[2017-11-30] MEDS ORDERED: ONDANSETRON 4 MG/2 ML VIAL IVP PRN (15:10)
[2017-11-30] MEDS ORDERED: ONDANSETRON DISINTEGRATING 4 MG TAB PO PRN (15:10)
[2017-11-30] MEDS: ACETAMINOPHEN 325 MG TAB PO PRN ×2 (15:35→20:27)
[2017-11-30] MEDS: ASPIRIN EC 325 MG TAB PO SCH (15:35)
[2017-11-30] MEDS: METOPROLOL TARTRATE 25 MG TAB PO SCH ×3 (15:36→23:42)
[2017-11-30] MEDS ORDERED: PNEUMOCOCCAL 0.5ML VACCINE VIAL IM ONE (20:19)
[2017-12-01 04:23] LABS: PLATELET COUNT 117 10^3/uL (150-400)
[2017-12-01] MEDS: ACETAMINOPHEN 325 MG TAB PO PRN (07:22)
[2017-12-01] MEDS ORDERED: PNEUMOCOCCAL 0.5ML VACCINE VIAL IM ONE (07:35)
[2017-12-01] MEDS: AMIODARONE HCL 200 MG TAB PO SCH (08:00)
[2017-12-01] MEDS: ASPIRIN EC 325 MG TAB PO SCH (08:00)
[2017-12-01] MEDS: METOPROLOL TARTRATE 25 MG TAB PO SCH (08:02)
--- NOTE | 2017-12-01 08:50 | CPEKG ---
Heart Rate: 63 RR Interval: 952 P-R Interval: 220 QRSD Interval: 156 QT Interval: 516 QTC Interval: 529 QRS [place]: -85 T Wave [place]: 106 EKG Severity - ABNORMAL ECG - EKG Impression: ATRIAL-PACED COMPLEXES EKG Impression: VENTRICULAR PREMATURE COMPLEX EKG Impression: FIRST DEGREE AV BLOCK EKG Impression: NONSPECIFIC IVCD WITH LAD EKG Impression: ANTEROLATERAL INFARCT, RECENT Electronically Signed By: Salvador Jacobsen 02-Dec-2017 09:28:29
[2017-12-01 08:54] VITALS: BP 100/72
[2017-12-01] MEDS ORDERED: TORSEMIDE 20 MG TAB PO SCH (09:00)
[2017-12-01] MEDS ORDERED: SPIRONOLACTONE 25 MG TAB PO SCH (09:00)
[2017-12-01] MEDS ORDERED: RIVAROXABAN 10 MG TAB PO SCH (09:00)
[2017-12-01] MEDS ORDERED: POTASSIUM CL 20 MEQ TAB PO SCH (09:00)
--- NOTE | 2017-12-01 10:26 | GDS ---
[f rep st] DISCHARGE SUMMARY DISCHARGE DIAGNOSES: 1. Severe bradycardia status post dual-chamber St. Vickey pacemaker. 2. Paroxysmal atrial flutter and atrial tachycardia, recently started on amiodarone and on Xarelto. 3. Hypertension. 4. History of heavy alcohol use. 5. Nonischemic cardiomyopathy with an ejection fraction of 37%. 6. Systolic congestive heart failure, currently stable. HOSPITAL COURSE: For detailed H and P, please see prior dictation. Briefly, the patient is a 47-yea r-old male with a history of nonischemic cardiomyopathy with ejection fraction of 37%, systolic heart failure, paroxysmal atrial flutter, hypertension, previous heavy alcohol abuse, and severe bradycard ia. He was admitted to the hospital on November 30 for pacemaker placement to able to optimize medical therapy. He had a [employer]. Vickey DDDR device placed by Dr. Brad Limon on November 30. The procedure was un complicated. The following morning, he complained of some discomfort over his pacer site but no sign ificant pain. His device was interrogated and working properly. His EKG at the time of discharge sh owed intermittent atrial pacing with 1 PVC. He was monitored on telemetry and was in atrial flutter the day of admission but is currently in sinus rhythm. His chest x-ray is negative for congestive he art failure or pneumothorax. PHYSICAL EXAMINATION: GENERAL: Patient appears in no acute distress. VITALS: Blood pressure 100/7 2, heart rate 62, oxygen saturation of 97% on room air, afebrile. LUNGS: Clear to auscultation. No wheezes, rhonchi, or crackles auscultated. CARDIAC: Regular rate and rhythm. CHEST WALL: His pac er site is clean, intact without any evidence of infection or significant hematoma. DISCHARGE MEDICATIONS: He has been started on amiodarone 400 mg twice daily x2 weeks, then 400 mg da leo for 2 weeks, and then 200 mg daily. He has also started Lopressor 25 mg twice daily. Aspirin levine s been reduced to 81 mg daily. He will continue Xarelto 20 mg daily, Demadex 60 mg daily, spironolac tone 25 mg daily, and Klor-Con 20 mEq daily. PLAN: The patient is currently stable and ready for discharge home. He has been given pacer precaut ions. He has been instructed on the dosing of amiodarone changing every 2 weeks. He will follow up for pacer interrogation and wound check on December 07 at 9 a.m. as scheduled. /[id number]/MODL
== END 2017-12-01 12:20 | disposition home or self-care (01) ==
LOC: FCATH 06:32 → F2W 11:44
PROVIDERS: ADMIT Internal Medicine Cardiovascular Disease; ATTEND Internal Medicine Cardiovascular Disease
DX: I49.5 Sick sinus syndrome (principal); I48.92 Unspecified atrial flutter; I47.1 Supraventricular tachycardia; I42.9 Cardiomyopathy, unspecified; I50.20 Unspecified systolic (congestive) heart failure; Z23 Encounter for immunization; F10.11 Alcohol abuse, in remission
CPT/HCPCS: C1785; C1898; G0009; J0171; J0690; J2370; J2405; J2704; J3010; Q9967

== ENCOUNTER 2017-12-04 04:33 | Observation (INO) | payer MEDICAID ==
--- NOTE | 2017-12-04 04:51 | EDPHY ---
H & P Stated Complaint: Pacemaker implanted 4 days ago, surgical site pain increasing. Time Seen by Provider: 12/04/17 04:51 HPI/ROS: HPI CHIEF COMPLAINT: Pace-Maker site pain/swelling. HISTORY OF PRESENT ILLNESS: Patient is a 47-year-old male, nonischemic cardiomyopathy EF 37%, recently had a pacemaker placed left chest, presents emergency room with increasing chest wall swelling ecchymosis. Additionally tenderness and swelling and pain over his pacemaker site incision site. No redness. No fever. He states that it started bothering getting increasing swelling over the past 2 days. Worse over the past 12 hr. No fever. Denies any trouble breathing. Denies pain when he takes a deep breath in. Denies fever vomiting. Patient is on Xarelto. Past Medical History: Nonischemic cardiomyopathy ejection fraction 37%, AFib, a flutter on Xarelto, hypertension, congestive heart failure, heavy alcohol use in the past Past Surgical History: Recent pacemaker placement Social History: Smokes tobacco. Denies use of alcohol. Family History: Noncontributory ROS REVIEW OF SYSTEMS: A comprehensive 10 point review of systems is otherwise negative aside from elements mentioned in the history of present illness. Exam Constitutional triage nursing summary reviewed, vital signs reviewed, awake/ alert. Eyes normal conjunctivae and sclera, EOMI, PERRLA. HENT normal inspection, atraumatic, moist mucus membranes, no epistaxis, neck supple/ no meningismus, no raccoon eyes. Respiratory clear to auscultation bilaterally, normal breath sounds, no respiratory distress, no wheezing. Cardiovascular chest wall: Significant swelling and tenderness over the incision site of the left chest pacemaker with Steri-Strips in place, there is no significant erythema or signs of infection however this significant ecchymosis down the left chest wall and left inner arm. The tenderness and swelling tracks down his left breast. Consistent most likely large hematoma. rate normal, regular rhythm, no murmur, no edema, distal pulses normal. Gastrointestinal soft, non-tender, no rebound, no guarding, normal bowel sounds, no distension, no pulsatile mass. Genitourinary no CVA tenderness. Musculoskeletal no midline vertebral tenderness, full range of motion, no calf swelling, no tenderness of extremities, no meningismus, good pulses, neurovascularly intact. Skin pink, warm, & dry, no rash, skin atraumatic. Neurologic awake, alert and oriented x 3, AAOx3, moves all 4 extremities equally, motor intact, sensory intact, CN II-XII intact, normal cerebellar, normal vision, normal speech. Psychiatric normal mood/affect. Heme/Lymph/Immune no lymphadenopathy. Differential Diagnosis: Includes but is not limited to in a particular order chest wall bleeding, bleeding into the chest wall pocket site of the pacemaker, comma chest wall hematoma, infection Medical Decision Making: Plan for this patient IV establishment blood draw, check coags, chest x-ray, ultrasound of the left chest help better visualize the hematoma, patient most likely need to be admitted to the hospital for pain control and hematoma. Re-evaluation: 0526AM: Spoke with Dr. Taylor, cardiology. They understand patient be admitted to Medicine for most likely chest wall hematoma. Ultrasound reviewed. This shows a 3.8 x 1.8 x 5 cm fluid collection consistent with most likely a complex hematoma. Patient be admitted to the hospitalist service for further care this. Cardiology consult. EKG interpretation by me on record in [employer] system. Impression time of EKG 6:30 a.m., this is a ventricularly paced rhythm. With a first-degree AV block MN interval 231. This EKG is performed the patient does not have any chest pain. This was performed due to chest wall hematoma and recent pacemaker placement. It is reading extensive anterior infarct on EKG however patient has no chest pain. When I compare this to his old EKG dated 12/01/2017 very similar EKG very similar morphology. Spoke with Dr. Parikh agrees to admit. 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 ALCOHOLIC -- SOBER FOR 12 YEARS. PACEMAKER placed 11/30/17 - Social History Smoking Status: Former smoker Constitutional: Initial Vital Signs Temperature (C) 36.6 C 12/04/17 04:37 Heart Rate 65 12/04/17 04:37 Respiratory Rate 16 12/04/17 04:37 Blood Pressure 101/74 12/04/17 04:37 O2 Sat (%) 96 12/04/17 04:37 O2 Delivery Mode Room Air Allergies/Adverse Reactions: No Known Allergies Allergy (Verified 11/12/17 18:11) Home Medications: Medication Instructions Recorded Potassium Cl [Klor-Con 20 meq (*)] 20 meq PO DAILY #0 10/07/17 Spironolactone [Aldactone 25 MG 25 mg PO DAILY #0 10/07/17 (*)] Torsemide [Demadex] 60 mg PO DAILY #0 10/07/17 Amiodarone HCl [Pacerone (*)] 400 mg PO BID #45 tab 12/01/17 Metoprolol Tartrate [Lopressor 25 25 mg PO BID #60 tab 12/01/17 mg (*)] Aspirin EC [Aspirin EC 81 mg (*)] 81 mg PO DAILY 12/04/17 Rivaroxaban [Xarelto 10mg (*)] 20 mg PO DAILY 12/04/17 Medical Decision Making - Data Points Laboratory Results: Laboratory Results 12/04/17 05:05 12/04/17 05:05 Medications Given: Hydrocodone Bitart/Acetaminophen ([place] 5/325) 1 - 2 tab PO Q4HRS PRN PRN Reason: Pain, Moderate Able to Take PO Stop: 12/14/17 06:08 Last Admin: 12/04/17 23:48 Dose: 1 tab Amiodarone HCl (Amiodarone Hcl) 400 mg PO BID [facility] Stop: 06/02/18 09:59 Last Admin: 12/04/17 21:11 Dose: 400 mg Metoprolol Tartrate (Lopressor) 25 mg PO BID [facility] Stop: 06/02/18 09:59 Last Admin: 12/04/17 21:11 Dose: 25 mg Ondansetron HCl (Zofran) 4 mg IVP Q4HRS PRN PRN Reason: Nausea/Vomiting, Can't Take PO Stop: 06/02/18 06:08 Last Admin: 12/04/17 19:16 Dose: 4 mg Discontinued Medications Hydromorphone HCl (Dilaudid) 0.5 mg IVP EDNOW ONE Stop: 12/04/17 04:58 Last Admin: 12/04/17 05:09 Dose: 0.5 mg Sodium Chloride (Ns) 1,000 mls @ 0 mls/hr IV ONCE ONE PRN Reason: Wide Open Stop: 12/04/17 04:58 Last Admin: 12/04/17 05:06 Dose: 1,000 mls Ondansetron HCl (Zofran) 4 mg IVP EDNOW ONE Stop: 12/04/17 04:58 Last Admin: 12/04/17 05:08 Dose: 4 mg Departure - Departure Disposition: [facility] Inpatient Acute Clinical Impression: Chest wall hematoma Qualifiers: Encounter type: initial encounter Laterality: left Qualified Code(s): S20.212A - Contusion of left front wall of thorax, initial encounter Condition: Fair
[2017-12-04] MEDS ORDERED: HYDROmorphONE/DILAUDID 2 MG/ML INJ IVP ONE (04:57)
[2017-12-04] MEDS ORDERED: NS 1,000 ML IV ONE (04:57)
[2017-12-04] MEDS ORDERED: ONDANSETRON 4 MG/2 ML VIAL IVP ONE (04:57)
[2017-12-04] MEDS ORDERED: HYDROmorphONE/DILAUDID 1 MG/ML INJ ONE (05:04)
[2017-12-04 05:14] LABS: PLATELET COUNT 111 10^3/uL (150-400)
[2017-12-04 05:30] LABS: INR 1.94 (0.83-1.16); PROTIME(PATIENT) 22.2 SEC (12.0-15.0)
[2017-12-04] MEDS ORDERED: ONDANSETRON 4 MG/2 ML VIAL IVP PRN (06:09)
[2017-12-04] MEDS ORDERED: ACETAMINOPHEN 325 MG TAB PO PRN (06:09)
--- NOTE | 2017-12-04 07:03 | CPEKG ---
Heart Rate: 60 RR Interval: 1000 P-R Interval: 231 QRSD Interval: 132 QT Interval: 552 QTC Interval: 552 P [place]: 30 QRS [place]: -71 T Wave [place]: 132 EKG Severity - ABNORMAL ECG - EKG Impression: AV paced EKG Impression: FIRST DEGREE AV BLOCK Electronically Signed By: Claude Aiken 06-Dec-2017 08:49:32
[2017-12-04] MEDS: AMIODARONE HCL 200 MG TAB PO SCH ×2 (10:55→21:11)
[2017-12-04] MEDS: METOPROLOL TARTRATE 25 MG TAB PO SCH ×2 (10:55→21:11)
[2017-12-04] MEDS: HYDROCODONE/APAP 5/325 TAB PO PRN ×2 (12:10→23:48)
--- NOTE | 2017-12-04 12:18 | GHP ---
[f rep st] HISTORY AND PHYSICAL DATE OF ADMISSION: 12/04/2017 CHIEF COMPLAINT: Left-sided chest pain. HISTORY OF PRESENT ILLNESS: A 47-year-old male who had a permanent pacemaker placed on 11/30/2017 fo r severe bradycardia. The patient had known paroxysmal A-flutter and A-tachycardia and had been star georgina on amiodarone. The patient had an uncomplicated procedure, was discharged on 12/01/2017, with st rict instructions on post pacemaker care. The patient reports returning home and within 24 hours of returning home inappropriately using his left arm to get out of bed, developed a strained feeling and a pulling feeling on that left side. Next day developed bruising in the axilla and down the left fl ank and then over the course of the subsequent 72 hours progressive swelling around the pacemaker poc ket and pain initially controllable with acetaminophen. Patient ultimately presented because the swe lling seemed to be worsening and was nearly uncontrolled on [id number] Tylenol. Patient denies any associated palpitations, lightheadedness, shortness of breath. Obviously having pain at the pac emaker site, but no where else in his chest. Has some discomfort on deep respiration, again at the p acemaker pocket, not anywhere else. Denies any changes in his appetite. Denies subjective fevers or chills. Denies diarrhea, dysuria, hematuria, or any changes in his lower extremities. PAST MEDICAL HISTORY: 1. Paroxysmal A-flutter and atrial tachycardia. 2. Severe bradycardia status post dual chamber [place] pacemaker. 3. Hypertension. 4. History of heavy alcohol abuse, sober x12 years. 5. Nonischemic cardiomyopathy. SOCIAL HISTORY: Patient smokes marijuana occasionally. Denies alcohol or illicit drugs. FAMILY HISTORY: Positive for heart problems in his mother side. REVIEW OF SYSTEMS: A 10-point review of systems is negative with the exception of that reported in t he HPI. PHYSICAL EXAMINATION: VITAL SIGNS: Blood pressure is 110/79, heart rate 65, respiratory rate 20, sa turating 95% on room air. GENERAL: This is a young male sitting up in bed. HEENT: Exam is notable for moist mucous membranes. Eye exam is negative for any icterus. CARDIAC: Patient is regular rate and rhythm. PULMONARY: Clear to auscultation bilaterally. GASTROINTESTINAL: Positive bowel sound s. ABDOMEN: Soft and nontender. MUSCULOSKELETAL: Negative for any lower extremity edema. SKIN: Negative for any rashes. NEUROLOGIC: He is alert and oriented x3. PSYCHIATRIC: He is pleasant and cooperative on interview and examination. CHEST WALL: The patient does have marked tenderness and swelling around the area of the pacemaker pocket. He does have ecchymoses along the left chest wall, which is also quite tender to palpation. DATA: White count 8.1, hematocrit 39.7, down from 40.6 on discharge, platelet count of 111. INR is 1.94. Creatinine 1.5, baseline 0.9 at discharge. Sodium 138, BUN 37. Chest x-ray which I personall y reviewed and interpreted, shows pacemaker in proper positioning. No infiltrates or edema. ASSESSMENT AND PLAN: This is a 47-year-old male presenting with left chest wall pain, status post pa cemaker placement. 1. Acute left chest pain, presumed secondary to a hematoma associated with his pacemaker pocket. Th e patient did inappropriately weight bear on that left side post procedure. He is on a blood thinner for his atrial flutter/atrial fibrillation, which certainly exacerbated his symptoms. Cardiology wi ll consult. Begin by placing a pressure dressing or Valentina bag to the area and monitor his symptoms. Can continue p.r.n. Tylenol as needed. 2. Atrial flutter/fibrillation. The patient is status post pacemaker placement. We will continue h is amiodarone and metoprolol. Will discuss ongoing anticoagulation with Cardiology before resuming. 3. Acute kidney injury. Can only assume this is related to poor p.o. intake in the outpatient [facility] with concurrent diuretics. The patient received 1 L of normal saline in the emergency department. We will repeat a BMP and hold diuretics today. 4. Nonischemic cardiomyopathy. Patient appears compensated at this time as above. Will hold diuret ics and continue the rest of his cardiac medications. Cardiology is consulting and following along. 5. Prophylaxis. Holding anticoagulation until discussed with Cardiology. 6. Diet. Cardiac. DISPOSITION: I expect less than 2 midnights if the patient's symptoms stabilize with pressure. I levine ve discussed the case with the emergency room physician and Cardiology. Patient will be admitted to the PCU for care. /[id number]/MODL
--- NOTE | 2017-12-04 14:59 | GCON ---
Pacer site with mild swelling noted. Mild ecchymosis was also noted to the peripocket region. Expected tenderness was noted. No expression of fluid from the incision was appreciated. Patient admitted to more mobility than recommended post Pacer implant. Recommendations for patient to hold anticoagulation today (NOAC and ASA) and plan on discharge tomorrow. [f rep st] CONSULTATION CARDIOLOGY CONSULTATION DATE OF CONSULTATION: 12/04/2017 REASON FOR CONSULTATION: We were asked by Dr. Bishop to evaluate the patient for his pacer site pain. HISTORY OF PRESENT ILLNESS: The patient is a 47-year-old male who had recent permanent pacemaker placement for severe bradycardia on 11/30/2017. He also had an EP study at that time and was found to have multiple atrial arrhythmias and associated atriopathy and so no ablation was undertaken. He was discharged on 12/01/17, with arm precautions, and continuation of all his medications including Xarelto and Aspirin. He presents today due to pain at pacer site. He was getting out of bed and used his left arm to prop himself up and noted discomfort first in his axillary region and then toward the pacer site. He has subsequently noted more swelling. Due to ongoing discomfort, he presented to the emergency department and now is currently admitted for further evaluation. PAST MEDICAL HISTORY: 1. Paroxysmal atrial flutter and atrial tachycardia. His last cardioversion for atrial flutter was in October. 2. Nonischemic cardiomyopathy myopathy with an EF of 35% to 40%. 3. Previous alcohol use, now sober for many years. 4. Hypertension. 5. Moderate to heavy marijuana use. SOCIAL HISTORY: No current alcohol use. FAMILY HISTORY: Positive for cardiac anomalies. OUTPATIENT MEDICATIONS: These include potassium, metoprolol, aspirin, amiodarone, Demadex, spironolactone and Xarelto. ALLERGIES: No known drug allergies. REVIEW OF SYSTEMS: As per HPI. A complete 10-point review of systems was obtained, is negative except for what is dictated. PHYSICAL EXAM: VITAL SIGNS: BP 97/71, heart rate 61, respirations 12, O2 saturation 99% on room air, temperature of 98.7 degrees Fahrenheit. GENERAL: He is a pleasant male in no apparent distress. HEENT: Head is normocephalic, atraumatic. Eyes are without scleral icterus. HEART: Regular rate and rhythm with no tachycardia. No rubs, gallops, or murmurs. LUNGS: Clear to auscultation bilaterally. Left pectoral region pacer site with a moderate hematoma. There is no drainage. Minimal ecchymosis. LABORATORY DATA: CBC was WBC 8.17, hemoglobin 13.2, hematocrit 39.7, platelet count of 111. INR 1.94. Chemistry: BMP with sodium 138, potassium 4.3, chloride 98, CO2 26, BUN 37, creatinine 1.5, glucose 109. IMPRESSION AND PLAN: The patient is a 47-year-old male admitted with pacer site pain. 1. Pacer site hematoma. This is mild to moderate. We will plan to hold his aspirin and Xarelto. Plan for pressure dressing versus sandbag in the region. Pain control per Hospital Medicine. 2. Atrial flutter and atrial arrhythmias. His amiodarone will be continued. He may follow up with Dr. Limon in the outpatient setting. 3. Acute kidney injury. This is being managed by the hospital Medicine. 4. Nonischemic cardiomyopathy. The patient appears euvolemic. Chest x-ray without any pleural effusions and only cardiomegaly. We will follow along in patient's care. /[id number]/MODL MTDD
[2017-12-05] MEDS: HYDROCODONE/APAP 5/325 TAB PO PRN (08:47)
[2017-12-05] MEDS ORDERED: NS 500 ML IV ONE (10:20)
[2017-12-05] MEDS: METOPROLOL TARTRATE 25 MG TAB PO SCH (11:33)
--- NOTE | 2017-12-05 11:36 | PDIAF ---
- Diagnosis Diagnosis: pacemaker hematoma - Medication Management Discharge Medications: Medications to Continue on Transfer Potassium Cl [Klor-Con 20 meq (*)] 20 meq PO DAILY #0 10/07/17 [Last Taken 12/03] Spironolactone [Aldactone 25 MG (*)] 25 mg PO DAILY #0 10/07/17 [Last Taken ] Torsemide [Demadex] 60 mg PO DAILY #0 10/07/17 [Last Taken 12/03/17] Amiodarone HCl [Pacerone (*)] 400 mg PO BID #45 tab 12/01/17 [Last Taken 21:00] Metoprolol Tartrate [Lopressor 25 mg (*)] 25 mg PO BID #60 tab 12/01/17 [Last Taken 12/03/17 21:00] Aspirin EC [Aspirin EC 81 mg (*)] 81 mg PO DAILY 12/04/17 [Last Taken 12/03/17] Rivaroxaban [Xarelto 10mg (*)] 20 mg PO DAILY 12/04/17 [Last Taken 12/03/17] Discharge Medications: Refer to the Discharge Home Medication list for PRN reason. - Orders Services needed: Home Care, Registered Nurse, Occupational Therapy Home Care Face to Face: I certify that this patient was under my care and that I had the required [id number] encounter meeting the encounter requirements on the discharge day. My findings support the fact that the patient is homebound as defined in Home Care Face to Face Continued: CMS Chapter 7 Medicare Benefits Manual 30.1.1 , The condition of the patient is such that there exists a normal inability to leave home and consequently, leaving home would require a considerable and taxing effort. Diet Recommendation: cardiac -low fat low salt Diet Texture: Regular Texture Diet Additional Instructions: please hold torsemide, spironolactone and xarelto until you see Cardiology on when they will check your pacer pocket and blood pressure to resume - Follow Up Care Current Providers and Referrals: James Muse MD [Primary Care Provider] - As per Instructions Jaswant Simmons MD [Medical Doctor] -
--- NOTE | 2017-12-05 12:00 | ASMTCAGE ---
CAGE Do you feel you ought to Answers: No cut down on your drinking or drug use? Do people annoy you by Answers: No criticizing your drinking or drug use? Do you feel guilty about Answers: No your drinking or drug use? 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 Additional Comments pt somkes 0.5 gram of marijuana daily. Refused resources for cessation. Date Signed: 12/05/2017 12:00 PM Electronically Signed By:Mattie Albrecht RN
--- NOTE | 2017-12-05 12:01 | ASMTLACE ---
[place] Length of stay for Answers: 1 day current admission Acuity / Level of Answers: No Care: Did the patient have an inpatient admission? Comorbidities - select Answers: Other Notes: atrial all that apply tachycardia, paroxysmal aflutter, sever bradycardia s/p dual chamber pacemaker, HTN, nonisch lemuel c cardiomyopathy # of Emergency department Answers: 5-8 visits in the last 6 months Social determinants Answers: History of substance abuse (ETOH, street drugs, prescription drugs, etc.) Score: 9 Date Signed: 12/05/2017 12:01 PM Electronically Signed By:Mattie Albrecht RN
[2017-12-05 12:18] VITALS: BP 114/80
--- NOTE | 2017-12-05 12:35 | ASDISCHSUM ---
Discharge Information Plan Status:Home with Home Health Medically Cleared to Leave:12/05/2017 Discharge Date:12/05/2017 D/C Disposition:Home Health Service ADT D/C Disposition:Home, Routine, Self-Care Projected Discharge Date:12/05/2017 11:00 AM Transportation at D/C:Friend Discharge Delay Reason: Follow-Up Date:12/05/2017 11:00 AM Discharge Slot: Final Diagnosis: Placement Information Referral Type:*Home Health Care Services Referral ID:[id number] Provider Name:[facility] [address] [address] Address 2: City:[place] Selection Factors: State:[place] Patient Contact Information Contact Name:CARYLCURTIS Relationship:Father Address: Work Phone: City: [facility] Phone: [facility] Code: Email: Financial Information Financial Class:Medicaid Primary Plan Desc:MEDICAID HEALTH FIRST PROBLEM MANAGER Primary Plan Number:[id number] Secondary Plan Desc: Secondary Plan Number: Assessment Information LACE LACE Length of stay for Answers: 1 day current admission Acuity / Level of Answers: No Care: Did the patient have an inpatient admission? Comorbidities - select Answers: Other Notes: atrial all that apply tachycardia, paroxysmal aflutter, sever bradycardia s/p dual chamber pacemaker, HTN, nonisch lemuel c cardiomyopathy # of Emergency department Answers: 5-8 visits in the last 6 months Social determinants Answers: History of substance abuse (ETOH, street drugs, prescription drugs, etc.) Score: 9 Date Signed: 12/05/2017 12:01 PM Electronically Signed By:Mattie Albrecht RN CAGE Questionnaire CAGE Do you feel you ought to Answers: No cut down on your drinking or drug use? Do people annoy you by Answers: No criticizing your drinking or drug use? Do you feel guilty about Answers: No your drinking or drug use? 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 Additional Comments pt somkes 0.5 gram of marijuana daily. Refused resources for cessation. Date Signed: 12/05/2017 12:00 PM Electronically Signed By:Mattie Albrecht RN Case Management Discharge Plan Note Case Management Discharge Discharge Order Complete? Answers: Yes Patient to Obtain Answers: Independently Medications Transportation Arranged Answers: Family/Friends Faxed Final Orders Answers: Yes Agency/Facility Transfer Answers: Yes Report Printed & Faxed to Receiving Agency Discharge Comments Notes: 12/05/2017 Case Management Note Met w/pt to discuss d/c needs. Arranged home care through [facility] for address of pt friend Sebastian Perdomo [phone]. Sebastian resides at [address] [place] [address]. Informed [facility]. Pt lists as a friend Jacki [phone] and Luciano [phone]. [facility] to use pt cellphone [phone] to arrange appointments. Faxed final orders. Date Signed: 12/05/2017 12:26 PM Electronically Signed By:Mattie Albrecht RN Intervention Information
[2017-12-05] MEDS: AMIODARONE HCL 200 MG TAB PO SCH (12:48)
--- NOTE | 2017-12-05 16:20 | GDS ---
[f rep st] DISCHARGE SUMMARY DISCHARGE DIAGNOSES: Include: 1. Acute pacemaker pocket hematoma. 2. Permanent pacemaker placement, secondary to severe bradycardia. 3. Paroxysmally flutter/atrial tachycardia. 4. Hypertension. 5. Nonischemic cardiomyopathy. 6. History of heavy alcohol abuse. HISTORY OF PRESENT ILLNESS: A 47-year-old male who had a pacemaker placed on 11/30/2017 who returns on the with complaints of swelling and pain. For details of the patient's initial presentation, please see the history and physical dated 12/04/2017. CONSULTATIVE SERVICES: Cardiology. PROCEDURES: None. HOSPITAL COURSE: 1. Acute hematoma of the left chest wall pacemaker pocket. The patient did admit to using his arm a gainst instructions the day after disposition, bearing weight and using it to get out of bed, almost instantly felt discomfort at the pacemaker pocket site, and then developed ecchymoses inferior to thi s. Over the course of the next several days, developed progressing swelling at the site and pain, wh ich prompted his presentation. Patient was taken off his blood thinners, had sandbags and pressure d ressings placed to the site. His pain improved with this treatment. He is being discharged with out patient Cardiology followup in 48 hours. He is to hold this Xarelto until that time. 2. Acute kidney injury presumed secondary to his outpatient diuretic regimen and poor p.o. intake pr ior. The patient was fluid resuscitated. We have held his diuretics at discharge. Creatinine impro earl from 1.5 to 1.0 on the day of discharge. He will follow in Cardiology in 48 hours for re-initiat ion of his diuretic regimen. MEDICATIONS AT TIME OF TRANSFER: Please reference the medication reconciliation printed on 9. PENDING STUDIES: At the time of this dictation are none. TIME SPENT: I spent greater than 30 minutes in the planning and coordination of this discharge. /[id number]/MODL
== END 2017-12-05 14:35 | disposition home health service (06) ==
LOC: F2W 07:51
PROVIDERS: ADMIT Family Medicine; ATTEND Hospitalist
DX: T82.897A Other specified complication of cardiac prosthetic devices, implants and grafts, initial encounter (principal); S20.212A Contusion of left front wall of thorax, initial encounter; N17.9 Acute kidney failure, unspecified; I49.5 Sick sinus syndrome; I48.0 Paroxysmal atrial fibrillation; I48.92 Unspecified atrial flutter; I47.1 Supraventricular tachycardia; I42.9 Cardiomyopathy, unspecified; I11.0 Hypertensive heart disease with heart failure; I50.9 Heart failure, unspecified; F10.21 Alcohol dependence, in remission; F12.90 Cannabis use, unspecified, uncomplicated; Y65.8 Other specified misadventures during surgical and medical care; Z79.82 Long term (current) use of aspirin; Z79.01 Long term (current) use of anticoagulants; Z87.891 Personal history of nicotine dependence
CPT/HCPCS: 71045; 76604; 93005; G0378; 96374; G0480; J1170; J2405

== ENCOUNTER 2017-12-08 10:53 | Emergency (ER) | payer MEDICAID ==
[2017-12-08] MEDS ORDERED: KETOROLAC 30 MG/1 ML SDV ONE (11:19)
--- NOTE | 2017-12-08 13:18 | EDPHY ---
H & P Stated Complaint: bleeding at pacer site/off eliquis 11/27 pacer 11/30 - Personal History Current Tetanus/Diphtheria Vaccine: Yes Tetanus Vaccine Date: < 10 years - Medical/Surgical History Hx Asthma: No Hx Chronic Respiratory Disease: No Hx Diabetes: No Hx Cardiac Disease: Yes Hx Renal Disease: No Hx Cirrhosis: No Hx Alcoholism: Yes Hx HIV/AIDS: No Hx Splenectomy or Spleen Trauma: No Other PMH: atrial flutter, hernia repair, L hip vascular necrosis/replacement @ [facility] 2017. ALCOHOLIC -- SOBER FOR 12 YEARS. PACEMAKER placed 11/30/17 - Social History Smoking Status: Never smoked Time Seen by Provider: 12/08/17 13:01 HPI/ROS: CHIEF COMPLAINT: Bleeding from pacer site HISTORY OF PRESENT ILLNESS: 47-year-old male history sick sinus syndrome, implantation of AV pacemaker by Dr. Brad Limon few days ago with drainage of left chest wall hematoma yesterday returns to the ER complaining drainage from the hematoma site. No chest pain. No dyspnea. No back pain. No abdominal pain. No dizziness. No syncope or near syncope. REVIEW OF SYSTEMS: A ten point review of systems was performed and is negative with the exception of the items mentioned in the HPI PAST MEDICAL & SURGICAL HISTORY: No pertinent medical or surgical history SOCIAL HISTORY: Prior history of alcoholism PHYSICAL EXAM (Prior to examination, patient consented to physical exam, hands were washed and my usual and customary physical exam procedures followed) 1) GENERAL: Well-developed, well-nourished, alert and oriented. Appears to be in no acute distress. 2) HEAD: Normocephalic, atraumatic 3) HEENT: Pupils equal, round, reactive to light bilaterally. Sclera anicteric. 4) NECK: Full range of motion, no meningeal signs. 5) LUNGS: Clear auscultation bilaterally, no wheezes, no rhonchi, no retractions. 6) HEART: Chest wall dressing place, partially saturated. This is taken down revealing anil in place with slow, hematoma bleeding no pain. 7) ABDOMEN: No guarding, no rebound, no focal tenderness,, 8) MUSCULOSKELETAL: Moving all extremities, no focal areas of tenderness, no obvious trauma. No peripheral edema or discoloration. 9) BACK: No visual or palpable abnormality. 10) SKIN: No rash, no petechiae. No ecchymosis 11) Psychiatric: Patient is oriented X 3, there is no agitation. DIFFERENTIAL DIAGNOSIS: In no particular order including but not limited to postsurgical hematoma, active extravasation, contusion (Sujit Isidro) Constitutional: Initial Vital Signs Temperature (C) 36.6 C 12/08/17 11:10 Heart Rate 68 12/08/17 11:10 Respiratory Rate 18 12/08/17 11:10 Blood Pressure 95/69 L 12/08/17 11:10 O2 Sat (%) 97 12/08/17 11:10 O2 Delivery Mode Room Air Allergies/Adverse Reactions: No Known Allergies Allergy (Verified 12/08/17 11:08) Home Medications: Medication Instructions Recorded Potassium Cl [Klor-Con 20 meq (*)] 20 meq PO DAILY #0 10/07/17 Spironolactone [Aldactone 25 MG 25 mg PO DAILY #0 10/07/17 (*)] Torsemide [Demadex] 60 mg PO DAILY #0 10/07/17 Amiodarone HCl [Pacerone (*)] 400 mg PO BID #45 tab 12/01/17 Metoprolol Tartrate [Lopressor 25 25 mg PO BID #60 tab 12/01/17 mg (*)] Aspirin EC [Aspirin EC 81 mg (*)] 81 mg PO DAILY 12/04/17 Rivaroxaban [Xarelto 10mg (*)] 20 mg PO DAILY 12/04/17 Medical Decision Making ED Course/Re-evaluation: 1:17 p.m.: Phone consultation with Dr. Brad Limon who is familiar with this patient. He recommended pressure dressing, recommend he continue his Eliquis the due to the high risk of stroke should the patient discontinued his Eliquis. The bleeding appears to be old, hematoma bleeding. Dr. Limon will contact individual from the cardiac catheter lab to place a pressure dressing on this area. 1:30 p.m.: organic lab worker staff in the ER applying pressure dressing. (Sujit Isidro) The patient was evaluated and managed by the physician dental front office assistant. I have reviewed this chart and I agree with the findings and plan of care as documented , as indicated by my signature. I am the secondary supervising physician. ( Darlene Gonzalez) - Data Points Medications Given: Discontinued Medications Acetaminophen (Tylenol) 1,000 mg PO EDNOW ONE Stop: 12/08/17 13:37 Last Admin: 12/08/17 13:38 Dose: 1,000 mg Departure - Departure Disposition: Home, Routine, Self-Care Clinical Impression: Chest wall hematoma Qualifiers: Encounter type: initial encounter Laterality: left Qualified Code(s): S20.212A - Contusion of left front wall of thorax, initial encounter Condition: Good Instructions: Hematoma (ED) Additional Instructions: If you develop worsening bleeding, if you develop dizziness, return to the ER for re-evaluation. Referrals: Brad Limon MD [Medical Doctor] - 2-3 days, call for appt.
[2017-12-08] MEDS ORDERED: ACETAMINOPHEN 500 MG TAB PO ONE (13:36)
[2017-12-08 14:12] VITALS: BP 103/74
== END 2017-12-08 14:11 | disposition home or self-care (01) ==
DX: I97.638 Postprocedural hematoma of a circulatory system organ or structure following other circulatory system procedure (principal); Z79.01 Long term (current) use of anticoagulants; Z79.82 Long term (current) use of aspirin
CPT/HCPCS: J1885

== ENCOUNTER 2017-12-10 09:00 | Inpatient (IN) | payer MEDICAID ==
--- NOTE | 2017-12-10 09:14 | CPEKG ---
Heart Rate: 60 RR Interval: 1000 P-R Interval: 210 QRSD Interval: 164 QT Interval: 568 QTC Interval: 568 P [place]: 40 QRS [place]: -78 T Wave [place]: 126 EKG Severity - ABNORMAL ECG - EKG Impression: SINUS RHYTHM EKG Impression: FIRST DEGREE AV BLOCK EKG Impression: NONSPECIFIC IVCD WITH LAD Electronically Signed By: Darlene Gonzalez 10-Dec-2017 16:42:16
--- NOTE | 2017-12-10 09:32 | EDPHY ---
H & P Stated Complaint: SOB post pacer placement Time Seen by Provider: 12/10/17 09:14 HPI/ROS: CHIEF COMPLAINT: Short of breath HISTORY OF PRESENT ILLNESS: This is a 48-year-old male who underwent pacemaker placement on November 30 of this year. He was discharged on December 01 following this procedure. He subsequently developed swelling and bruising on the pacemaker pocket and associated pain, after using his left arm to get out of bed. He was seen on December 04 and admitted to the hospital overnight. A pressure-dressing was placed over the pacemaker pocket. He returns this morning concerned about progressively worsening shortness of breath. This is worse when he is supine. Last night he could not sleep at all , even while sitting up. He has had a mild nonproductive cough. He denies fever. He notices a small amount of swelling in his ankles. REVIEW OF SYSTEMS: A ten point review of systems was performed and is negative with the exception of the items mentioned in the HPI. Past medical history: 1. Paroxysmal a flutter/atrial tachycardia 2. Severe bradycardia status post dual chamber [place] pacemaker 3. Hypertension 4. Nonischemic cardiomyopathy 5. History of alcohol abuse, sober for 12 years Past surgical history: Pacemaker placement Family history: Family history is positive for cardiac problems on the maternal side. Social history: He is here with a friend today. He does not use tobacco products, alcohol, or illicit drugs. He occasionally smokes marijuana. General Appearance: Alert. Vital signs reviewed and WNL. Eyes: Pupils equal and round, no conjunctival injection, no discharge. Anicteric. ENT, Mouth: Mucous membranes are moist, no oropharyngeal erythema or edema. Neck: No lymphadenopathy, supple. Respiratory: Rales and wheezes. Cardiovascular: Regular rate and rhythm; no murmur, rub, or gallop. There is a pressure dressing overlying the left upper thorax. This was partially removed and there continues to be some swelling overlying the pacemaker pocket. Gastrointestinal: Abdomen is soft and nontender, no masses or organomegaly, bowel sounds normal. Skin: Warm and dry, no rashes on exposed skin, normal color. Back: Nontender to palpation over the thoracolumbar spine. No CVAT. Extremities: Trace bilateral lower extremity edema, no calf tenderness or swelling. Neurological: Alert and oriented. Moving all four extremities easily and equally. Psychiatric: Normal affect. - Personal History Current Tetanus Diphtheria and Acellular Pertussis (TDAP): Yes Tetanus Vaccine Date: < 10 years - Medical/Surgical History Hx Asthma: No Hx Chronic Respiratory Disease: No Hx Diabetes: No Hx Cardiac Disease: Yes Hx Renal Disease: No Hx Cirrhosis: No Hx Alcoholism: Yes Hx HIV/AIDS: No Hx Splenectomy or Spleen Trauma: No Other PMH: atrial flutter, hernia repair, L hip vascular necrosis/replacement @ [facility] 2017. ALCOHOLIC -- SOBER FOR 12 YEARS. PACEMAKER placed 11/30/17 - Social History Smoking Status: Never smoked Constitutional: Initial Vital Signs Temperature (C) 36.8 C 12/10/17 09:15 Heart Rate 60 12/10/17 09:15 Respiratory Rate 20 12/10/17 09:15 Blood Pressure 107/80 12/10/17 09:15 O2 Sat (%) 98 12/10/17 09:15 O2 Delivery Mode Room Air Allergies/Adverse Reactions: No Known Allergies Allergy (Verified 12/10/17 09:17) Home Medications: Medication Instructions Recorded Amiodarone HCl [Pacerone (*)] 400 mg PO BID #45 tab 12/01/17 Metoprolol Tartrate [Lopressor 25 25 mg PO BID #60 tab 12/01/17 mg (*)] Aspirin EC [Aspirin EC 81 mg (*)] 81 mg PO DAILY 12/04/17 Cephalexin [Keflex (*)] 500 mg PO QID 12/10/17 Medical Decision Making ED Course/Re-evaluation: I reviewed the patient's lab values and chest x-ray. Chest x-ray shows a right pleural effusion. He has cardiomegaly that, to my interpretation, is unchanged. BNP is elevated. The clinical picture overall is one of congestive heart failure. Systolic Blood pressures in the emergency department happened just over 100. He will be admitted to the hospital for diuresis as appropriate and cardiac evaluation. Differential Diagnosis: Shortness of breath including but not limited to pulmonary infectious process, pneumothorax postprocedure, COPD, asthma, pulmonary embolus and congestive heart failure. - Data Points Laboratory Results: Laboratory Results 12/10/17 09:20 12/10/17 09:20 Medications Given: Acetaminophen (Tylenol) 650 mg PO Q4HRS PRN PRN Reason: Pain, Mild/Fever, Can Take PO Stop: 06/08/18 12:19 Last Admin: 12/11/17 14:57 Dose: 650 mg Albuterol (Proventil Neb) 3 ml IH Q2HRS PRN PRN Reason: Short of Breath/Dyspnea Stop: 06/08/18 12:19 Last Admin: 12/10/17 15:17 Dose: 3 ml Amiodarone HCl (Amiodarone Hcl) 400 mg PO BID [facility] Stop: 06/08/18 20:59 Last Admin: 12/11/17 08:01 Dose: 400 mg Cephalexin HCl (Keflex) 500 mg PO QID THERESA PRN Reason: Protocol Stop: 01/09/18 15:59 Last Admin: 12/11/17 15:48 Dose: 500 mg Diphenhydramine HCl (Benadryl) 50 mg PO Q6HRS PRN PRN Reason: Itching Stop: 06/08/18 20:03 Last Admin: 12/10/17 21:31 Dose: 25 mg Metoprolol Tartrate (Lopressor) 25 mg PO BID [facility] Stop: 06/08/18 20:59 Last Admin: 12/11/17 08:01 Dose: 25 mg Ondansetron HCl (Zofran) 4 mg IVP Q4HRS PRN PRN Reason: Nausea/Vomiting, Can't Take PO Stop: 06/08/18 12:19 Last Admin: 12/10/17 13:39 Dose: 4 mg Rivaroxaban (Xarelto) 20 mg PO DAILY AT 6PM [facility] Stop: 06/08/18 12:49 Last Admin: 12/10/17 16:51 Dose: Not Given Spironolactone (Aldactone) 25 mg PO DAILY [facility] Stop: 06/09/18 11:44 Last Admin: 12/11/17 12:20 Dose: 25 mg Torsemide (Demadex) 60 mg PO DAILY AT 10AM [facility] Stop: 06/09/18 11:44 Last Admin: 12/11/17 12:19 Dose: 60 mg Discontinued Medications Furosemide (Lasix Injection) 20 mg IVP DAILY [facility] Stop: 06/08/18 12:44 Last Admin: 12/11/17 07:59 Dose: 20 mg Lorazepam (Ativan) 0.5 mg PO ONCE ONE Stop: 12/10/17 12:16 Last Admin: 12/10/17 12:19 Dose: 0.5 mg Ondansetron HCl (Zofran) 4 mg IVP EDNOW ONE Stop: 12/10/17 10:32 Last Admin: 12/10/17 10:33 Dose: 4 mg Pantoprazole Sodium (Protonix) 40 mg IVP BID THERESA Stop: 06/08/18 14:29 Last Admin: 12/11/17 08:03 Dose: 40 mg Departure - Departure Disposition: [facility] Acute Clinical Impression: Congestive heart failure Qualifiers: Heart failure type: unspecified Heart failure chronicity: acute on chronic Qualified Code(s): I50.9 - Heart failure, unspecified Condition: Good
[2017-12-10 10:23] LABS: INR 1.39 (0.83-1.16); PLATELET COUNT 143 10^3/uL (150-400); PROTIME(PATIENT) 17.2 SEC (12.0-15.0)
[2017-12-10] MEDS ORDERED: ONDANSETRON 4 MG/2 ML VIAL IVP ONE (10:31)
[2017-12-10] MEDS ORDERED: ONDANSETRON 4 MG/2 ML VIAL ONE (10:31)
--- NOTE | 2017-12-10 11:33 | ASMTCMCOM ---
CM Note CM Note Notes: Pt presented to the ED through triage for N/V, SOB and numbness/tingling in extremities, which he has had intermittently for a couple of days but it N/V got worse while at [employer] this morning. Pt admitted for SOB and right sided pleural effusion. Pt was also in the ED on 12/08 for bleeding at his pacemaker site due to a hematoma (pt had pacemaker placed 11/30/[address] Brad Limon). Pt had pressure dressing applied by the fish hatchery laborer team in the ED and was discharged home. Pt is still staying at his friend Shawn [facility] on [address] and receiving HC RN through [facility]. This CM called and notified [facility] of pt admission. Pt states he has not been sleeping very well and has had lightheadedness and dizziness. 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 Pt states he also [place] [facility] [place] would be able to continue to stay at [facility] until he is fully recovered. Pt's PCP is James Muse at [facility]; pt may need assistance with getting a follow-up appt before being discharged. Exact DC needs unknown at this time, CM to follow. Date Signed: 12/10/2017 11:33 AM Electronically Signed By:Jordyn Heck RN
[2017-12-10] MEDS ORDERED: LORazepam 0.5 MG TAB PO ONE (12:15)
[2017-12-10] MEDS ORDERED: ALBUTEROL 3 ML DEYVIAL IH PRN (12:20)
[2017-12-10] MEDS ORDERED: ONDANSETRON 4 MG/2 ML VIAL IVP PRN (12:20)
[2017-12-10] MEDS ORDERED: ONDANSETRON DISINTEGRATING 4 MG TAB PO PRN (12:20)
--- NOTE | 2017-12-10 12:46 | PDGENHP ---
History and Physical - Chief Complaint SOB - History of Present Illness This is a 48-year-old male who underwent pacemaker placement on November 30 of this year. He was discharged on December 01 following this procedure. He subsequently developed swelling and bruising on the pacemaker pocket and associated pain, after using his left arm to get out of bed. He was seen on December 04 and admitted to the hospital overnight. A pressure-dressing was placed over the pacemaker pocket. He returns this morning concerned about progressively worsening shortness of breath. This is worse when he is supine. Last night he could not sleep at all , even while sitting up. He has had a mild nonproductive cough. He denies fever. He notices a small amount of swelling in his ankles. His CXR shows a right sided pleural effusion He is afebrile. He denies chest pain. He has not had recurrence of of swelling and bruising around his pacemaker Past medical history: 1. Paroxysmal a flutter/atrial tachycardia 2. Severe bradycardia status post dual chamber [employer] pacemaker 3. Hypertension 4. Nonischemic cardiomyopathy 5. History of alcohol abuse, sober for 12 years Past surgical history: Pacemaker placement Family history: Family history is positive for cardiac problems on the maternal side. Social history: He smokes marijuana daily CXR: personally reviewed: right sided pleural effusion EKG: personally reviewed: no ischemia History Information - Allergies/Home Medication List Allergies/Adverse Reactions: No Known Allergies Allergy (Verified 12/10/17 09:17) Home Medications: Aspirin EC [Aspirin EC 81 mg (*)] 81 mg PO DAILY 12/04/17 [Last Taken 12/10/17] Cephalexin [Keflex (*)] 500 mg PO QID 12/10/17 [Last Taken 12/10/17 ONE DOSE THIS AM] I have personally reviewed and updated: medical history, social history - Social History Smoking Status: Current every day smoker Review of Systems Review of Systems: ROS: 10pt was reviewed & negative except for what was stated in HPI & below Physical Exam Physical Exam: Temp Pulse Resp BP Pulse Ox 36.7 C 61 14 124/104 H 94 12/10/17 11:55 12/10/17 11:55 12/10/17 11:55 12/10/17 11:55 12/10/17 11:55 Constitutional: no apparent distress, not in pain Eyes: PERRL, EOMI Ears, Nose, Mouth, Throat: moist mucous membranes, hearing normal Cardiovascular: regular rate and rhythym, JVD, edema Respiratory: reduced air movement Gastrointestinal: normoactive bowel sounds Genitourinary: no bladder fullness Skin: warm Musculoskeletal: full muscle strength Neurologic: AAOx3 Psychiatric: interacting appropriately, not anxious, not encephalopathic Lab Data & Imaging Review 12/10/17 09:20 12/10/17 09:20 WBC 6.68 10^3/uL (3.80-9.50) 12/10/17 09:20 RBC 4.43 10^6/uL (4.40-6.38) 12/10/17 09:20 Hgb 13.4 g/dL (13.7-17.5) L 12/10/17 09:20 Hct 41.4 % (40.0-51.0) 12/10/17 09:20 MCV 93.5 fL (81.5-99.8) 12/10/17 09:20 MCH 30.2 pg (27.9-34.1) 12/10/17 09:20 MCHC 32.4 g/dL (32.4-36.7) 12/10/17 09:20 RDW 19.5 % (11.5-15.2) H 12/10/17 09:20 Plt Count 143 10^3/uL (150-400) L 12/10/17 09:20 MPV 12.0 fL (8.7-11.7) H 12/10/17 09:20 Neut % (Auto) 73.4 % (39.3-74.2) 12/10/17 09:20 Lymph % (Auto) 16.3 % (15.0-45.0) 12/10/17 09:20 Baca % (Auto) 7.0 % (4.5-13.0) 12/10/17 09:20 Eos % (Auto) 2.1 % (0.6-7.6) 12/10/17 09:20 Baso % (Auto) 0.6 % (0.3-1.7) 12/10/17 09:20 Nucleat RBC Rel Count 0.3 % (0.0-0.2) H 12/10/17 09:20 Absolute Neuts (auto) 4.90 10^3/uL (1.70-6.50) 12/10/17 09:20 Absolute Lymphs (auto) 1.09 10^3/uL (1.00-3.00) 12/10/17 09:20 Absolute Monos (auto) 0.47 10^3/uL (0.30-0.80) 12/10/17 09:20 Absolute Eos (auto) 0.14 10^3/uL (0.03-0.40) 12/10/17 09:20 Absolute Basos (auto) 0.04 10^3/uL (0.02-0.10) 12/10/17 09:20 Absolute Nucleated RBC 0.02 10^3/uL (0-0.01) H 12/10/17 09:20 Immature Gran % 0.6 % (0.0-1.1) 12/10/17 09:20 Immature Gran # 0.04 10^3/uL (0.00-0.10) 12/10/17 09:20 Platelet Estimate DECREASED (ADEQ) L 12/10/17 09:20 Polychromasia 1+ H 12/10/17 09:20 Oval Macrocytes 1+ H 12/10/17 09:20 PT 17.2 SEC (12.0-15.0) H 12/10/17 09:20 INR 1.39 (0.83-1.16) H 12/10/17 09:20 APTT 34.1 SEC (23.0-38.0) 12/10/17 09:20 Sodium 136 mEq/L (135-145) 12/10/17 09:20 Potassium 5.3 mEq/L (3.3-5.0) H 12/10/17 09:20 Chloride 103 mEq/L (97-110) 12/10/17 09:20 Carbon Dioxide 19 mEq/l (22-31) L 12/10/17 09:20 Anion Gap 14 mEq/L (8-16) 12/10/17 09:20 BUN 28 mg/dL (7-23) H 12/10/17 09:20 Creatinine 1.3 mg/dL (0.7-1.3) 12/10/17 09:20 Estimated GFR 60 12/10/17 09:20 Glucose 98 mg/dL (70-100) 12/10/17 09:20 Calcium 8.4 mg/dL (8.5-10.4) L 12/10/17 09:20 Troponin I 0.016 ng/mL (0.000-0.034) 12/10/17 09:20 NT-Pro-B Natriuret Pep 6580 pg/mL (0-125) H 12/10/17 09:20 Assessment & Plan Assessment: #CHF Exacerbation with known preserved LVEF #Right sided pleural effusion #Pedal Edema #Hx of Afib, s/p PPM on 11/30 with subsequent hematoma on 12/08 #Severely Dilated Right Atrium #Soft BP #Nausea Plan: Admit Lasix: I have given him 20mg IV daily as BP soft, he may require more restart Xarelto, I spoke with Dr. Murry about this and he feels that the pt is at very high risk of Stroke and given this he has recommended restarting Xarelto. Aspirin will be stopped Cont BB Antiemetics for his Nausea Full Code Cards to consult
[2017-12-10] MEDS: RIVAROXABAN 20 MG TAB PO SCH ×2 (13:07→16:51)
[2017-12-10] MEDS: ACETAMINOPHEN 325 MG TAB PO PRN (13:07)
[2017-12-10] MEDS: FUROSEMIDE 20 MG/2 ML VIAL IVP SCH (13:07)
--- NOTE | 2017-12-10 13:33 | PDMN ---
Medical Necessity Medical necessity: C/M review: est. > 2 MN LOS for eval and TX of acute CHF exacerbation with known preserved LVEF, right sided pleural effusion seen on CXR , pedal edema, progressive worsening shortness of breath, severely dilated right atrium, soft BP, nausea requiring planned Cardiology consult, ongoing IV Lasix, restart oral Xarelto, aspirin discontinued, continue beta noam, antiemetics as needed for nausea, cardiac monitoring, pulse oximetry, acute inpt PT, comorbid history of atrial fibrillation S/P permanent pacemaker placement on 11/30/2017 with subsequent hematoma 12/08/2017, paroxysmal atrial flutter / atrial tachycardia, severe bradycardia S/P dual chamber [employer] pacemaker, hypertension, nonischemic cardiomyopathy, history of alcohol abuse, sober for 12 years per H/P.
[2017-12-10] MEDS: CEPHALEXIN 500 MG CAP PO SCH ×2 (15:26→21:23)
[2017-12-10] MEDS: PANTOPRAZOLE SODIUM 40 MG VIAL IVP SCH ×2 (15:26→21:23)
[2017-12-10] MEDS ORDERED: RIVAROXABAN 20 MG TAB PO SCH (18:00)
[2017-12-10] MEDS ORDERED: diphenhydrAMINE 50 MG CAP PO PRN (20:04)
[2017-12-10] MEDS: AMIODARONE HCL 200 MG TAB PO SCH (21:23)
[2017-12-10] MEDS: METOPROLOL TARTRATE 25 MG TAB PO SCH (21:23)
[2017-12-10] MEDS: diphenhydrAMINE 25 MG CAP PO PRN (21:31)
[2017-12-11] MEDS: ACETAMINOPHEN 325 MG TAB PO PRN ×3 (02:26→20:42)
[2017-12-11 04:46] LABS: PLATELET COUNT 120 10^3/uL (150-400)
[2017-12-11] MEDS: CEPHALEXIN 500 MG CAP PO SCH ×4 (06:31→20:43)
[2017-12-11] MEDS: FUROSEMIDE 20 MG/2 ML VIAL IVP SCH (07:59)
[2017-12-11] MEDS: METOPROLOL TARTRATE 25 MG TAB PO SCH ×2 (08:01→20:43)
[2017-12-11] MEDS: AMIODARONE HCL 200 MG TAB PO SCH ×2 (08:01→20:42)
[2017-12-11] MEDS: PANTOPRAZOLE SODIUM 40 MG VIAL IVP SCH (08:03)
--- NOTE | 2017-12-11 12:16 | GCON ---
[f rep st] CONSULTATION This is a 47-year-old male with a past history of chronic CHF, EF of 47%, paroxysmal atrial fibrillat ion, hypertension, previous heavy alcohol use daily, moderate to heavy marijuana use, chronically abn ormal EKG, with normal coronaries, who was recently seen with atrial flutter at the rate of 35 beats per minute, with pauses in between. The patient desired cardioversion, and more recently I took him up for possibility of flutter ablation and pacemaker. However, he was in atypical flutter, with atri al sizes extremely enlarged, and decided to just cardiovert him, and put in a pacer. Because of the large biatrial enlargement, it was decided to give him Xarelto. However, on Xarelto he had a hematom a, and hence wound revision was performed, after which he went home. Yesterday he started feeling pr ogressive shortness of breath, worse when supine. Could not sleep well. Mild nonproductive cough, w ithout any fever. Minimal pedal edema. REVIEW OF SYSTEMS: A 10-point review of systems negative. PAST MEDICAL HISTORY: Atrial tachycardia, atrial flutter, sinus bradycardia status post pacemaker, h ypertension, nonischemic cardiomyopathy, alcohol abuse. PAST SURGICAL HISTORY: Pacemaker placement. FAMILY HISTORY: Cardiac problems. SOCIAL HISTORY: Uses marijuana. Does not use alcohol. ALLERGIES: None. PHYSICAL EXAM: Blood pressure 130/80, respiratory rate 16. GENERAL: Patient is alert, oriented. HE ENT: Pupils equal, reacting to light, accommodating. No conjunctival injection. The patient is ani cteric. Mucous membranes moist. No oropharyngeal erythema. No lymphadenopathy. NECK: Supple. CH EST: Good air entry, bilaterally equal. No rales, rhonchi, rub. HEART: S1, S2 regular. No S3. N o murmurs. ABDOMEN: Soft, nontender. No rigidity. Bowel sounds present. No hematoma noted. Pres sure dressing remains intact. ABDOMEN: Soft, nontender. No guarding or rigidity. No hepatomegaly. SKIN: Warm and dry. EXTREMITIES: Trace bilateral edema. LABORATORY DATA: Hemoglobin of 11.9, and 35.9, platelets 120, creatinine 0.9. IMPRESSION AND PLAN: This is a 47-year-old who comes in for congestive heart failure. 1. Congestive heart failure: The patient has been on high dose of torsemide, and hence would recomm end continuing the same. A small dose of Lasix may be inadequate at this point in time. I would als o add metoprolol to the patient's regimen. 2. Atrial flutter/fibrillation. I will continue the Xarelto, considering his high risk for stroke. 3. Pacemaker: I will continue the Keflex. Thank you for letting us participate in the patient's care. Feel free to call us with questions. /[id number]/MODL
[2017-12-11] MEDS: TORSEMIDE 20 MG TAB PO SCH (12:19)
[2017-12-11] MEDS: SPIRONOLACTONE 25 MG TAB PO SCH (12:20)
--- NOTE | 2017-12-11 12:43 | ASMTCMCOM ---
CM Note CM Note Notes: Reviewed pt's case in rounds. Pt had been staying w/friend and had [facility] RN HHC. Anticipate he will return to friend's home w/[facility] following; [facility] has been notified of admission. Date Signed: 12/11/2017 12:43 PM Electronically Signed By:Lori Castillo RN
[2017-12-11] MEDS: RIVAROXABAN 20 MG TAB PO SCH (17:00)
--- NOTE | 2017-12-11 17:47 | HOSPPROG ---
Hospitalist Progress Note Assessment/Plan: DIAGNOSES: # CHF Exacerbation with known preserved LVEF * So far very brisk response to diuresis here * Needs perhaps 1 more day of inpatient IV diuresis # Right sided pleural effusion # acute renal insufficiency most likely due to decreased cardiac output with heart failure * This is actually improved somewhat today in the setting of large volume diuresis overnight # marked Pedal Edema # Hx of Afib, s/p PPM on 11/30 with subsequent hematoma on 12/08 * Still in pressure dressing over his wound with no evidence of bleeding at this time # Severely Dilated Left and Right Atrium, chronically leaving him at very high risk of PE and stroke * Continue full-dose anticoagulant # Nausea # hyperkalemia, resolved likely because of the Lasix This patient was seen by me on multidisciplinary rounds in addition hospitalist rounds I also discussed his case in detail today with Dr. Brad Limon SUBJECTIVE: The patient does notice some improvement in breathing but still more short of breath unusual Still has edema in his legs no pain at the pacer site OBJECTIVE Vitals reviewed: Stable overall with good heart rate control, no fever Floor Surfacer, my review: Paced Exam: alert oriented skin warm dry color ok Chest wall with large pressure dressing taped on to prevent movement or bleeding at his pacer site, no evidence of bleeding at this time resps not labored lungs clear BSs heart regular abd soft nondistended nontender, bowel sounds present limbs warm, still with by pedal pitting edema up to several inches above the malleoli iv site ok Laboratory data: Potassium down to 4.9 Creatinine and BUN have both improved nicely since yesterday Objective: Vital Signs Temp Pulse Resp BP Pulse Ox 36.9 C 69 14 96/74 L 97 12/11/17 16:00 12/11/17 16:00 12/11/17 16:00 12/11/17 16:00 12/11/17 16:00 Laboratory Results 12/11/17 03:47 12/11/17 03:47 12/10/17 12/11/17 12/12/17 06:59 06:59 06:59 Intake Total 400 1000 Output Total 2300 2400 Balance -1900 -1400 PT 17.2 SEC (12.0-15.0) H 12/10/17 09:20 INR 1.39 (0.83-1.16) H 05/27/18 09:20 - Time Spent With Patient Time Spent with Patient: greater than 35 minutes Time Spent with Patient: Greater than 35 minutes spent on this patients care, greater than 50% of time spent counseling, educating, and coordinating care regarding the above mentioned plan. ICD10 Worksheet Patient Problems: Problems Problem Status Onset Congestive heart failure Acute Chest wall hematoma Acute
[2017-12-11] MEDS: PANTOPRAZOLE SODIUM 40 MG TAB PO SCH (21:00)
[2017-12-12] MEDS: diphenhydrAMINE 25 MG CAP PO PRN ×2 (01:17→08:09)
[2017-12-12] MEDS: ACETAMINOPHEN 325 MG TAB PO PRN (01:17)
[2017-12-12] MEDS: CEPHALEXIN 500 MG CAP PO SCH ×2 (06:19→12:40)
[2017-12-12] MEDS: METOPROLOL TARTRATE 25 MG TAB PO SCH (08:03)
[2017-12-12] MEDS: PANTOPRAZOLE SODIUM 40 MG TAB PO SCH (08:04)
[2017-12-12] MEDS: SPIRONOLACTONE 25 MG TAB PO SCH (08:04)
[2017-12-12] MEDS: AMIODARONE HCL 200 MG TAB PO SCH (08:04)
[2017-12-12] MEDS: TORSEMIDE 20 MG TAB PO SCH (09:43)
[2017-12-12 11:15] VITALS: BP 107/83
--- NOTE | 2017-12-12 11:52 | PDCARPN ---
Cardiology Progress Note Chief Complaint: S/P Pacemaker Assessment/Plan: Assessment: Pacemaker hematoma- bleeding, now with pressure dressing in place. The dressing was taken off by Dr Limon's recommendation, and it started to bleed again. The dressing now in place will remain until he is seen by Dr Limon on Monday. He is instructed not to lift, push, or pull with the left arm and not to bring it over his shoulder level. Should he have re-bleeding he is advised to call our office or the ER. He understands these instructions. Plan: Keep pressure dressing in place until he follows up with Dr Limon on Monday. 12/12/17 17:35 Subjective: Feels ready for discharge. Will see Dr Limon Monday in clinic. Reviewed/Discussed With: hospitalist (Denny Penny MD), multidisciplinary team Objective: Vital Signs (8 Hrs) Temp Pulse Resp BP Pulse Ox 12/12/17 11:13 36.7 C 59 L 16 107/83 H 96 12/12/17 07:20 36.7 C 82 14 102/76 96 12/12/17 03:49 36.7 C 61 17 100/79 97 Intake/Output (24 Hrs) 12/11/17 12/12/17 12/13/17 05:59 05:59 05:59 Intake Total 400 2200 Output Total 2300 4490 1200 Balance -1900 -2290 -1200 Intake: Oral (ml) 400 2200 Output: Urine (ml) 2300 4490 1200 Toilet 640 1200 Urinal 2300 3850 Other: Weight 71.1 kg Intake Quantity Yes Sufficient Number of Voids Toilet 1 Urinal 2 1 Number of Stools Toilet 1 Result Diagrams: 12/11/17 03:47 12/12/17 03:38 Telemetry: Paced rhythm. - Physical Exam Constitutional: no apparent distress Cardiovascular: regular rate and rhythm Respiratory: no crackles, no wheezes Skin: warm, no edema Neurologic: AAOx3 Psychiatric: cooperative, interactive ICD10 Worksheet Patient Problems: Problems Problem Status Onset Chest wall hematoma Acute Congestive heart failure Acute
--- NOTE | 2017-12-12 12:31 | PDIAF ---
- Diagnosis Diagnosis: acute CHF, Bleeding from pacer site Code Status: Full Code - Medication Management Discharge Medications: Medications to Continue on Transfer Amiodarone HCl [Pacerone (*)] 400 mg PO BID #45 tab 12/01/17 [Last Taken ] Metoprolol Tartrate [Lopressor 25 mg (*)] 25 mg PO BID #60 tab 12/01/17 [Last Taken 12/10/17] Cephalexin [Keflex (*)] 500 mg PO QID 12/10/17 [Last Taken 12/10/17 ONE DOSE THIS AM] Pantoprazole Sodium [Protonix 40mg (*)] 40 mg PO DAILY #30 tab 12/12/17 [Last Taken Unknown] Rivaroxaban [Xarelto] 20 mg PO DAILY AT 6PM #30 tab 12/12/17 [Last Taken Unknown ] Spironolactone [Aldactone 25 MG (*)] 25 mg PO DAILY #30 tab 12/12/17 [Last Taken Unknown] Torsemide [Demadex] 60 mg PO DAILY AT 10AM #90 tab 12/12/17 [Last Taken Unknown] Discharge Medications: Refer to the Discharge Home Medication list for PRN reason. - Orders Services needed: Home Care, Registered Nurse Home Care Face to Face: I certify that this patient was under my care and that I had the required [id number] encounter meeting the encounter requirements on the discharge day. My findings support the fact that the patient is homebound as defined in Home Care Face to Face Continued: CMS Chapter 7 Medicare Benefits Manual 30.1.1 , The condition of the patient is such that there exists a normal inability to leave home and consequently, leaving home would require a considerable and taxing effort. Diet Recommendation: sodium restricted (2 gm Na) Diet Texture: Regular Texture Diet Wound Care Instructions: keep pressure dressing on pacer site. Contact Dr Brad Limon for any concerns with the pacer site. Additional Instructions: Low Salt diet Follow up with Dr Limon per his instructions Activity restrictions with L arm per Dr Limon's instructions - Follow Up Care Current Providers and Referrals: James Muse MD [Primary Care Provider] - As per Instructions
--- NOTE | 2017-12-12 12:35 | PDDCSUM ---
Discharge Summary Discharge Summary: DISCHARGE DIAGNOSES: -acute diastolic congestive heart failure -ongoing some bleeding from recent pacemaker insertion site -chronic atrial fibrillation rate controlled on anticoagulant -severe biatrial enlargement with very high stroke risk -acute renal insufficiency, improved with diuresis CONSULTANTS: Dr. Brad Limon [facility] SUMMARY: This patient with severe chronic heart disease came in with shortness of breath and had pulmonary edema and peripheral edema. He had been having a increase in salt intake in his diet and had inadvertently somehow understood instructions to take his diuretics at lower doses than prescribed. There was no evidence of ischemia, his chronic AFib was rate controlled, under no other acute abnormalities of cardiac function. He does have a recently placed pacemaker which was done while on anticoagulation due to very high stroke risk from he severe biatrial enlargement. At this time he has some mild ongoing bleeding that is being well controlled with pressure dressing and this has been stable for him here. The patient was treated with IV Lasix diuresis and then change back to his usual Aldactone and torsemide and has diuresed quite rapidly and well here. His dyspnea, pulmonary edema and peripheral edema or all resolved at this point. He is walking around the room and hallways easily on room air. His lungs are clear and has met trace edema at the ankles. He has had good rate control throughout his stay here with his AFib. Vital signs have been stable. He had some mild initial renal insufficiency as he arrived in that resolved within the 1st day or 2 on diuresis. PENDING TEST RESULTS: None MEDICATION CHANGES: His torsemide is resumed at this point at 60 mg daily, Aldactone 25 daily. He is to continue his rivaroxaban at his usual dose At this time Protonix 40 mg is added for some dyspepsia that has improved with that treatment here in the hospital. This is a chronic issue for him. FOLLOW-UP PLAN: With Dr. Murry in Cardiology Clinic next week He also will have home care set up with [facility], a continuation of care he was getting before this admission Greater than 35 minutes bedside and care coordination time today
--- NOTE | 2017-12-12 14:55 | ASMTLACE ---
[place] Length of stay for Answers: 2 days current admission Comorbidities - select Answers: Other Notes: pacemaker, paroxysmal all that apply A-flutter, nonischemic cardiomyopathy # of Emergency department Answers: 5-8 visits in the last 6 months Social determinants Answers: History of substance abuse (ETOH, street drugs, prescription drugs, etc.) Score: 10 Date Signed: 12/12/2017 02:54 PM Electronically Signed By:Mattie Albrecht RN
--- NOTE | 2017-12-12 14:58 | ASDISCHSUM ---
Discharge Information Plan Status:Home with Home Health Medically Cleared to Leave:12/12/2017 Discharge Date:12/12/2017 01:26 PM CM D/C Disposition:Home Health Service ADT D/C Disposition:Home Health Service Projected Discharge Date:12/12/2017 11:00 AM Transportation at D/C:Self Discharge Delay Reason: Follow-Up Date:12/12/2017 11:00 AM Discharge Slot: Final Diagnosis: Placement Information Referral Type:*Home Health Care Services Referral ID:[id number] Provider Name:[facility] [address] [address] Address 2: City:[place] Selection Factors: State:[place] Patient Contact Information Contact Name:CARYLCURTIS Relationship:Father Address: Work Phone: City: [facility] Phone: [facility] Code: Email: Financial Information Financial Class:Medicaid Primary Plan Desc:[employer] [place] Primary Plan Number:[id number] Secondary Plan Desc: Secondary Plan Number: Assessment Information [facility] CM Progress Note CM Note CM Note Notes: Pt presented to the ED through triage for N/V, SOB and numbness/tingling in extremities, which he has had intermittently for a couple of days but it N/V got worse while at [employer] this morning. Pt admitted for SOB and right sided pleural effusion. Pt was also in the ED on 12/08 for bleeding at his pacemaker site due to a hematoma (pt had pacemaker placed 11/30/[address] Brad Limon). Pt had pressure dressing applied by the laborer car barn team in the ED and was discharged home. Pt is still staying at his friend Shawn house on [address] and receiving HC RN through [facility]. This CM called and notified [facility] of pt admission. Pt states he has not been sleeping very well and has had lightheadedness and dizziness. 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 Pt states he also has an RV that is parked in [facility] but would be able to continue to stay at [facility]'s house until he is fully recovered. Pt's PCP is James Muse at [facility]; pt may need assistance with getting a follow-up appt before being discharged. Exact DC needs unknown at this time, CM to follow. Date Signed: 12/10/2017 11:33 AM Electronically Signed By:Jordyn Heck RN LACE LACE Length of stay for Answers: 2 days current admission Comorbidities - select Answers: Other Notes: pacemaker, paroxysmal all that apply A-flutter, nonischemic cardiomyopathy # of Emergency department Answers: 5-8 visits in the last 6 months Social determinants Answers: History of substance abuse (ETOH, street drugs, prescription drugs, etc.) Score: 10 Date Signed: 12/12/2017 02:54 PM Electronically Signed By:Mattie Albrecht RN [facility] JULIO Progress Note CM Note CM Note Notes: Reviewed pt's case in rounds. Pt had been staying w/friend and had [facility] RN [facility]. Anticipate he will return to friend's home w/[facility] following; [facility] has been notified of admission. Date Signed: 12/11/2017 12:43 PM Electronically Signed By:Lori Castillo RN Case Management Discharge Plan Note Case Management Discharge Discharge Order Complete? Answers: Yes Patient to Obtain Answers: Independently Medications Transportation Arranged Answers: Other Notes: self Faxed Final Orders Answers: Yes Agency/Facility Transfer Answers: Yes Report Printed & Faxed to Receiving Agency Discharge Comments Notes: 12/12/2017 Case Management Note Referred pt to [facility]. Pt is open with [facility]. Notified [facility] of discharge. Faxed final orders. Pt primary is through the [facility]. Date Signed: 12/12/2017 02:56 PM Electronically Signed By:Mattie Albrecht RN Intervention Information
== END 2017-12-12 13:26 | disposition home health service (06) | DRG 194 ==
LOC: OBSVTOIN 11:12 → F2W 11:43
PROVIDERS: ADMIT Family Medicine; ATTEND Family Medicine
DX: I50.31 Acute diastolic (congestive) heart failure (principal); I51.7 Cardiomegaly; N28.9 Disorder of kidney and ureter, unspecified; I48.0 Paroxysmal atrial fibrillation; I48.92 Unspecified atrial flutter; Z79.01 Long term (current) use of anticoagulants; L76.22 Postprocedural hemorrhage of skin and subcutaneous tissue following other procedure; R00.1 Bradycardia, unspecified; I10 Essential (primary) hypertension; Z95.0 Presence of cardiac pacemaker; Z96.642 Presence of left artificial hip joint; F10.11 Alcohol abuse, in remission
CPT/HCPCS: 96374; 97161-GP; J1940; J2405; J7613

== ENCOUNTER 2017-12-13 17:15 | Inpatient (IN) | payer MEDICAID ==
--- NOTE | 2017-12-13 17:54 | EDPHY ---
H & P Stated Complaint: ON ELIQUIS RECURRENT BLEEDING AT PACEMAKER SITE/DC FROM HOSPITAL YESTERDAY Time Seen by Provider: 12/13/17 17:54 - Personal History Current Tetanus/Diphtheria Vaccine: Yes Tetanus Vaccine Date: < 10 years - Medical/Surgical History Hx Asthma: No Hx Chronic Respiratory Disease: No Hx Diabetes: No Hx Cardiac Disease: Yes Hx Renal Disease: No Hx Cirrhosis: No Hx Alcoholism: Yes Hx HIV/AIDS: No Hx Splenectomy or Spleen Trauma: No Other PMH: atrial flutter, hernia repair, L hip vascular necrosis/replacement @ [facility] 2017. ALCOHOLIC -- SOBER FOR 12 YEARS. PACEMAKER placed 11/30/17 - Social History Smoking Status: Never smoked Constitutional: Initial Vital Signs Temperature (C) 36.8 C 12/13/17 17:28 Heart Rate 60 12/13/17 17:28 Respiratory Rate 18 12/13/17 17:28 Blood Pressure 89/60 L 12/13/17 17:28 O2 Sat (%) 95 12/13/17 17:28 O2 Delivery Mode Room Air Allergies/Adverse Reactions: No Known Allergies Allergy (Verified 12/13/17 17:25) Home Medications: Medication Instructions Recorded Amiodarone HCl [Pacerone (*)] 400 mg PO BID #45 tab 12/01/17 Metoprolol Tartrate [Lopressor 25 25 mg PO BID #60 tab 12/01/17 mg (*)] Cephalexin [Keflex (*)] 500 mg PO QID 12/10/17 Pantoprazole Sodium [Protonix 40mg 40 mg PO DAILY #30 tab 12/12/17 (*)] Rivaroxaban [Xarelto] 20 mg PO DAILY AT 6PM #30 tab 12/12/17 Spironolactone [Aldactone 25 MG 25 mg PO DAILY #30 tab 12/12/17 (*)] Torsemide [Demadex] 60 mg PO DAILY AT 10AM #90 tab 12/12/17 Medical Decision Making ED Course/Re-evaluation: CHIEF COMPLAINT: Bleeding from recent pacemaker placement site. HISTORY OF PRESENT ILLNESS: This patient is an anticoagulated (Xarelto) 47 y/o male s/p pacer placement on by Dr. Limon. He was discharged from the hospital yesterday. He has continued to bleed from the site since it was placed, and today noted blood seeping out from under his dressing. He has no further complaints. No chest pain , shortness of breath, fever, or other associated symptoms. REVIEW OF SYSTEMS: A 10 point review of systems was performed and is negative with the exception of the elements mentioned in the history of present illness. PHYSICAL EXAM: HR, BP, O2 Sat, RR. Temp noted General Appearance: Alert, well hydrated, appropriate, and non-toxic appearing. Head: Atraumatic without scalp tenderness or obvious injury Eyes: Pupils equal, round, reactive to light and accommodation, EOMI, no trauma , no injection. Ears: Clear bilaterally, no perforation, normal landmarks Nose: Atraumatic, no rhinorrhea, clear. Throat: There is no erythema or exudates, no lesions, normal tonsils, mucus membranes moist. Neck: Supple, 2+ carotid upstroke, nontender, no lymphadenopathy. Respiratory: No retractions, no distress, no wheezes, and no accessory muscle use. Lungs are clear to auscultation bilaterally. Cardiovascular: Regular rate and rhythm, no murmurs, rubs, or gallops. Bilateral carotid, radial, dorsalis pedis, and posterior tibial pulses intact. Good capillary refill all extremities. Gastrointestinal: Abdomen is soft, nontender, non-distended, no masses, no rebound, no guarding, no peritoneal signs. Musculoskeletal: Normal active ROM of all extremities, atraumatic. Neurological: Alert, appropriate, and interactive. The patient has normal DTRs and non-focal cranial nerves, motor, sensory, and cerebellar exam. Skin: No rashes, good turgor, no nodules on palpation. Past medical history: Atrial flutter, history of alcohol abuse (sober 12 years) . Past surgical history: Hernia repair. Pacer placement. Left hip vascular necrosis. Family history: Noncontributory Social history: Single. Lives in [place]. Transient. DIFFERENTIAL DIAGNOSIS: Includes but not limited to hypotension due to blood loss, medication overdose, poor cauterization of pacer pocket. MEDICAL DECISION MAKIN47 y/o male s/p pacer placement 11/30/17 presents with persistent bleeding from his pacer site. The patient is hypotensive at 89/60. Plan to consult with cardiology. 18:[address] Simmons, dip dyer. Plan to admit. Plan for labs including CBC, chemistries. Cardiology will evaluate the patient tomorrow morning. 18:28 Consulted with hospitalist service. Dr. Cunningham accepts admission to PCU. - Data Points Laboratory Results: Laboratory Results 12/13/17 18:14 12/13/17 18:14 18 12/13/17 18:14 18:14 WBC 6.48 10^3/uL 10^3/uL (3.80-9.50) RBC 4.40 10^6/uL 10^6/uL (4.40-6.38) Hgb 13.2 g/dL L g/dL (13.7-17.5) Hct 40.6 % % (40.0-51.0) MCV 92.3 fL fL (81.5-99.8) MCH 30.0 pg pg (27.9-34.1) MCHC 32.5 g/dL g/dL (32.4-36.7) RDW 19.6 % H % (11.5-15.2) Plt Count 175 10^3/uL 10^3/uL (150-400) MPV 11.0 fL fL (8.7-11.7) Neut % (Auto) 76.9 % H % (39.3-74.2) Lymph % (Auto) 13.4 % L % (15.0-45.0) [place] % (Auto) 5.4 % % (4.5-13.0) Eos % (Auto) 3.4 % % (0.6-7.6) Baso % (Auto) 0.6 % % (0.3-1.7) Nucleat RBC Rel Count 0.0 % % (0.0-0.2) Absolute Neuts (auto) 4.98 10^3/uL 10^3/uL (1.70-6.50) Absolute Lymphs (auto) 0.87 10^3/uL L 10^3/uL (1.00-3.00) Absolute Monos (auto) 0.35 10^3/uL 10^3/uL (0.30-0.80) Absolute Eos (auto) 0.22 10^3/uL 10^3/uL (0.03-0.40) Absolute Basos (auto) 0.04 10^3/uL 10^3/uL (0.02-0.10) Absolute Nucleated RBC 0.00 10^3/uL 10^3/uL (0-0.01) Immature Gran % 0.3 % % (0.0-1.1) Immature Gran # 0.02 10^3/uL 10^3/uL (0.00-0.10) Platelet Estimate ADEQUATE (ADEQ) Microcytic Cells 2+ H Oval Macrocytes 2+ H Sodium 139 mEq/L mEq/L (135-145) Potassium 4.5 mEq/L mEq/L (3.3-5.0) Chloride 102 mEq/L mEq/L (97-110) Carbon Dioxide 24 mEq/l mEq/l (22-31) Anion Gap 13 mEq/L mEq/L (8-16) BUN 44 mg/dL H mg/dL (7-23) Creatinine 1.7 mg/dL H mg/dL (0.7-1.3) Estimated GFR 44 Glucose 116 mg/dL H mg/dL (70-100) Calcium 9.2 mg/dL mg/dL (8.5-10.4) Departure - Departure Disposition: [facility] Inpatient Acute Clinical Impression: Pacemaker pocket hematoma Qualifiers: Encounter type: initial encounter Qualified Code(s): T82.837A - Hemorrhage due to cardiac prosthetic devices, implants and grafts, initial encounter Hypotension Qualifiers: Hypotension type: other hypotension type Qualified Code(s): I95.89 - Other hypotension Condition: Fair Report Scribed for: Oneal Garcia Report Scribed by: Jeny Worley Date of Report: 12/13/17 Time of Report: 18:24
[2017-12-13 18:23] LABS: PLATELET COUNT 175 10^3/uL (150-400)
[2017-12-13] MEDS ORDERED: ONDANSETRON DISINTEGRATING 4 MG TAB PO PRN (18:31)
[2017-12-13] MEDS ORDERED: ONDANSETRON 4 MG/2 ML VIAL IVP PRN (18:31)
[2017-12-13] MEDS ORDERED: ACETAMINOPHEN 325 MG TAB PO PRN (18:31)
[2017-12-13] MEDS ORDERED: NS 1,000 ML IV SCH (19:30)
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
[2017-12-13] MEDS: CEPHALEXIN 500 MG CAP PO SCH (20:48)
[2017-12-13] MEDS: AMIODARONE HCL 200 MG TAB PO SCH (20:49)
[2017-12-13] MEDS: diphenhydrAMINE 25 MG CAP PO PRN (22:19)
[2017-12-14] MEDS: CEPHALEXIN 500 MG CAP PO SCH ×4 (06:22→21:10)
[2017-12-14] MEDS: AMIODARONE HCL 200 MG TAB PO SCH ×2 (08:37→21:10)
[2017-12-14] MEDS: diphenhydrAMINE 25 MG CAP PO PRN (08:44)
[2017-12-14] MEDS ORDERED: PANTOPRAZOLE SODIUM 40 MG TAB PO SCH (09:00)
[2017-12-14] MEDS ORDERED: SPIRONOLACTONE 25 MG TAB PO SCH (09:00)
[2017-12-14] MEDS ORDERED: TORSEMIDE 20 MG TAB PO SCH (10:00)
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
--- NOTE | 2017-12-14 13:48 | ASMTCMCOM ---
CM Note CM Note Notes: 12/14/2017 Case Management Note Met pt during rounds this morning. Pt is well known to case management with several recent admissions. Pt admitted for hypotension and bleeding around his pacemaker insertion site. Pt is staying with friends for his recovery. He is open with [facility]. Notified [facility] of admission. Faxed updates. Case Management d/c poc: return to house of friend and resume [facility]. Case Management to follow Date Signed: 12/14/2017 01:47 PM Electronically Signed By:Mattie Albrecht RN
--- NOTE | 2017-12-14 18:36 | HOSPPROG ---
Hospitalist Progress Note Assessment/Plan: DIAGNOSES: -bleeding from recent pacemaker placement site, largely due to placement of the pacemaker on anticoagulation due to proceed high stroke risk * In reality the bleeding has not increased at all from what it has been happening over the last week, however as it persists Dr. Murry would like to trying get the bleeding stops that he can go on with healing so anticoagulation is now stopped * He is hemodynamically stable with no drop in hemoglobin affect is hemoglobins higher than previously was -excessive diuresis is resulted and some acute renal failure but otherwise well tolerated by the patient * During the most recent admission he came in with significant congestive heart failure, was discharged at pretty much usually me a, comes in now with normal vital signs and appearing at the bedside euvolemic but with acute rise in creatinine to 1.7 * Creatinine improved to 1.5 overnight with minimal hydration and withholding of diuretic * Will continue hold diuretic at this time, high reviewed with Dr. Brad Limon -chronic atrial fibrillation, chronic severe biatrial enlargement with atria bigger than ventricles leading to perceived high risk of stroke with his AFib * Will need to get back on anticoagulation as soon as safely possible once his pacemaker site heals Seen by me today on hospitalist rounds and multidisciplinary rounds I reviewed in great detail today with Dr. Brad Limon in 2 conversations SUBJECTIVE: Patient feels better overall No shortness of breath, minimal pain at pacer site, no other acute symptoms OBJECTIVE Vitals reviewed: All stable Shactor, my review: Paced Exam: alert oriented skin warm dry color ok Chest wall, minimal oozing has stopped from his pacemaker site at the moment resps not labored lungs clear BSs heart regular abd soft nondistended nontender, bowel sounds present limbs warm, no edema iv site ok Laboratory data: Creatinine down to 1.5 today other lab stable so far Objective: Vital Signs Temp Pulse Resp BP Pulse Ox 36.6 C 73 18 99/69 L 97 12/14/17 16:08 12/14/17 16:08 12/14/17 16:08 12/14/17 16:08 12/14/17 16:08 Laboratory Results 12/14/17 04:46 12/13/17 12/14/17 12/15/17 06:59 06:59 06:59 Intake Total 1410 700 Output Total 2050 225 Balance -640 475 - Time Spent With Patient Time Spent with Patient: greater than 35 minutes Time Spent with Patient: Greater than 35 minutes spent on this patients care, greater than 50% of time spent counseling, educating, and coordinating care regarding the above mentioned plan. ICD10 Worksheet Patient Problems: Problems Problem Status Onset Hypotension Acute Pacemaker pocket hematoma Acute Chest wall hematoma Acute Congestive heart failure Acute
[2017-12-15] MEDS: CEPHALEXIN 500 MG CAP PO SCH ×2 (06:42→12:35)
[2017-12-15] MEDS: AMIODARONE HCL 200 MG TAB PO SCH (08:42)
--- NOTE | 2017-12-15 09:01 | PDMN ---
Medical Necessity Medical necessity: change to IP; los>2mn for persistent bleeding from PPM site r/t placement on AC due to high risk for stroke, and acute renal failure r/t excessive diuresis; requires monitoring of renal function and bleeding off AC and diuretic; comorbid chronic afib, htn, nonischemic cardiomyopathy, and homelessness; per order and progress note 12/14/17
[2017-12-15 12:11] VITALS: BP 107/69
--- NOTE | 2017-12-15 12:30 | PDCARPN ---
Cardiology Progress Note Chief Complaint: Patient reports he would like to go home. Assessment/Plan: Assessment: 47-year-old male with significant past history of atrial tachycardia, systolic heart failure paroxysmal atrial flutter, symptomatic bradycardia bradycardia, hypertension, previous heavy EtOH use, daily moderate marijuana use, with noted normal coronary arteries based off cardiac catheterization 07/12/2016, recent electrophysiology study showing more than 1 atrial arrhythmia (11/20/2017), with pacemaker implantation done on the same day, and started on antiarrhythmic therapy of amiodarone. Admitted on 12/13 for hematoma of pacemaker implantation site while on anticoagulation of Xarelto. Noted to have elevated creatinine of 1.7 on admission. Noted off of most recent LIZANDRO LVEF of 35-40%. Today, he denies of any chest pain or pressure. Reporting no significant pain and incisional site. He has had diuretic therapy held due to elevated creatinine on admission. Yesterday's laboratory studies showing creatinine of 1.4. No significant peripheral edema noted on physical examination, no significant JVD. Plan: 1. Pacemaker hematoma: No signs of infection incision site. Discussed with Dr. Limon's. Will hold patient's Xarelto at this time, and re-evaluate in a week 's time to determine if we may resume his anticoagulation. 2. Paroxysmal atrial flutter and atrial tachycardia: Patient has been resumed on home dose of amiodarone. Continue current therapy. Patient maintaining sinus rhythm. 3. Acute on chronic systolic heart failure: Nonischemic cardiomyopathy, appears to be euvolemic physical examination. Creatinine trending downward. Will repeat BMP today. Consideration of restarting him on home dose of Aldactone, and potentially reduced dose of torsemide. 4. History of symptomatic bradycardia: Patient with ppm implantation: Being AV paced at this time. Reporting significant improvement in symptoms of lightheadedness since device implantation. Potentially patient could be discharged today depending on his laboratory studies which are currently pending. I will make sure that he has a follow-up appointment next week with our heart failure group. He will also be scheduled to see electrophysiology next week also. 12/15/17 12:29 Subjective: Patient denies of any chest pain or pressure. Reports no shortness of breath. Has had no fevers or chills. Does report continuation of mild pain at pacemaker insertion site. Reviewed/Discussed With: hospitalist (Dr Grace), other (Dr Limon) Objective: Vital Signs (8 Hrs) Temp Pulse Resp BP Pulse Ox 12/15/17 12:00 36.8 C 63 18 107/69 97 12/15/17 07:46 36.6 C 87 18 109/78 97 12/15/17 06:50 81 Intake/Output (24 Hrs) 12/14/17 12/15/17 12/16/17 05:59 05:59 05:59 Intake Total 540 Output Total 1950 675 Balance -1410 -675 Intake: Oral (ml) 540 Output: Urine (ml) 1950 675 Urinal 1950 675 Other: Weight 65.5 kg Number of Voids Urinal 1 Result Diagrams: 12/13/17 18:14 12/15/17 12:15 - Physical Exam Constitutional: WDWN, no apparent distress Ears, Nose, Mouth, Throat: moist mucous membranes Cardiovascular: regular rate and rhythm, no rubs, no gallops, systolic murmur ( 1 to 2/6 systolic noted along left sternal border.), No jugular vein distention, No carotid bruit Peripheral Pulses: 1+: dorsalis-pedis (R), dorsalis-pedis (L), 2+: carotid (R), carotid (L) Respiratory: clear to auscultate bilat, no crackles, no wheezes, No reduced air movement Gastrointestinal: normoactive bowel sounds, no tenderness, no masses Skin: no rashes, warm, other ( Pacemaker insertion site, left lateral anterior chest , incision healing with anil intact. No redness, swelling, or drainage. Palm size hematoma around incision.) Neurologic: AAOx3 Psychiatric: cooperative, following commands ICD10 Worksheet Patient Problems: Problems Problem Status Onset Chest wall hematoma Acute Congestive heart failure Acute Pacemaker pocket hematoma Acute Hypotension Acute
--- NOTE | 2017-12-15 13:39 | ASMTLACE ---
LACE Length of stay for Answers: Less than 1 day current admission Comorbidities - select Answers: Congestive heart failure all that apply Other Notes: Hx of atrial flutter; Pacemaker # of Emergency department Answers: 5-8 visits in the last 6 months Score: 7 Date Signed: 12/15/2017 01:38 PM Electronically Signed By:Nika Gibbons RN
--- NOTE | 2017-12-15 13:42 | ASMTCMCOM ---
CM Note CM Note Notes: Patient reviewed in rounds. He was just dc'd. He lives with a friend and has [facility]. He has been medically cleared for discharge to home. Will alert [facility] for resumption of service. CM available should other need arise. Plan: Home with [facility]. Date Signed: 12/15/2017 01:41 PM Electronically Signed By:Nika Gibbons RN
--- NOTE | 2017-12-15 13:47 | GDS ---
[f rep st] DISCHARGE SUMMARY ALL DIAGNOSES: 1. Pacemaker pocket hematoma. 2. Acute kidney injury due to excessive diuresis. 3. Chronic atrial fibrillation. 4. Nonischemic cardiomyopathy. HOSPITAL COURSE: A 47-year-old male who was admitted after having a recent pacemaker placed. He has been deemed to be high risk for stroke. Thus, had not discontinued his anticoagulation. He present ed with a pacer pocket hematoma. He additionally had a kidney injury. His Xarelto has been held aft er close discussion with the patient regarding the risks of this. Hematoma is stable. His diuretics have been held. Renal function improved with a creatinine of 0.9 on the day of discharge. Will con mell to hold his Xarelto for 1 week. He will see Dr. Limon in clinic next Monday and decide on re starting his anticoagulation. His torsemide dose has been reduced from 60 daily down to 20 daily. W ill continue his Aldactone. He will see Farzaneh Kelley in clinic next Monday to recheck his labs . He is comfortable with these plans. He is discharged in stable condition. BILLING: I spent more than 30 minutes on the day of discharge coordinating care. /[id number]/MODL
--- NOTE | 2017-12-15 13:58 | PDIAF ---
- Diagnosis Diagnosis: pacer pocket hematoma Code Status: Full Code - Medication Management Discharge Medications: Medications to Continue on Transfer Metoprolol Tartrate [Lopressor 25 mg (*)] 25 mg PO BID #60 tab 12/01/17 [Last Taken 12/13/17 09:00] Cephalexin [Keflex (*)] 500 mg PO QID 12/10/17 [Last Taken 12/13/17 13:00] Pantoprazole Sodium [Protonix 40mg (*)] 40 mg PO DAILY #30 tab 12/12/17 [Last Taken 12/13/17] Spironolactone [Aldactone 25 MG (*)] 25 mg PO DAILY #30 tab 12/12/17 [Last Taken 12/13/17] Amiodarone HCl [Pacerone (*)] 200 mg PO DAILY tab 12/15/17 [Last Taken Unknown] Amiodarone HCl [Pacerone (*)] 400 mg PO DAILY tab 12/15/17 [Last Taken Unknown] Torsemide [Demadex] 20 mg PO DAILY10 #30 tab 12/15/17 [Last Taken Unknown] Discharge Medications: Refer to the Discharge Home Medication list for PRN reason. - Orders Services needed: Home Care, Certified Rn Medical Inpatient Services, Physical Therapy, Occupational Therapy Home Care Face to Face: I certify that this patient was under my care and that I had the required [id number] encounter meeting the encounter requirements on the discharge day. My findings support the fact that the patient is homebound as defined in Home Care Face to Face Continued: CMS Chapter 7 Medicare Benefits Manual 30.1.1 , The condition of the patient is such that there exists a normal inability to leave home and consequently, leaving home would require a considerable and taxing effort. Additional Instructions: Daily weights, call [facility] if you gain more than 2 pounds in a day or 5 pounds in a week - Follow Up Care Current Providers and Referrals: Jaswant Simmons MD [Medical Doctor] - (Mansi Kelley RUBBERIZING MECHANIC on December 19, 2017 at 10:15 am) James Muse MD [Primary Care Provider] - As per Instructions Brad Limon MD [Medical Doctor] - (December 20, 2017 at 1:00 pm)
--- NOTE | 2017-12-15 17:06 | ASDISCHSUM ---
Discharge Information Plan Status:Home with Home Health Medically Cleared to Leave: Discharge Date:12/15/2017 03:21 PM D/C Disposition:Home Health Service ADT D/C Disposition:Home, Routine, Self-Care Projected Discharge Date:12/16/2017 11:00 AM Transportation at D/C: Discharge Delay Reason: Follow-Up Date:12/16/2017 11:00 AM Discharge Slot: Final Diagnosis: Placement Information Referral Type:*Home Health Care Services Referral ID:[id number] Provider Name:[facility] [address] [address] Address 2: City:[place] Selection Factors: State:[place] Patient Contact Information Contact Name:CAITLYN Relationship:Father Address: Work Phone: City: [facility] [place] Phone: [facility] Code: Email: Financial Information Financial Class:Medicaid Primary Plan Desc:[place] Primary Plan Number:[id number] Secondary Plan Desc: Secondary Plan Number: Assessment Information LACE LACE Length of stay for Answers: Less than 1 day current admission Comorbidities - select Answers: Congestive heart failure all that apply Other Notes: Hx of atrial flutter; Pacemaker # of Emergency department Answers: 5-8 visits in the last 6 months Score: 7 Date Signed: 12/15/2017 01:38 PM Electronically Signed By:Nika Gibbons RN [facility] JULIO Progress Note JULIO Mccloud CM Note Notes: 12/14/2017 Case Management Note Met pt during rounds this morning. Pt is well known to case management with several recent admissions. Pt admitted for hypotension and bleeding around his pacemaker insertion site. Pt is staying with friends for his recovery. He is open with [facility]. Notified [facility] of admission. Faxed updates. Case Management d/c poc: return to house of friend and resume [facility]. Case Management to follow Date Signed: 12/14/2017 01:47 PM Electronically Signed By:Mattie Albrecht RN [facility] CM Progress Note CM Note CM Note Notes: Patient reviewed in rounds. He was just dc'd. He lives with a friend and has [facility]. He has been medically cleared for discharge to home. Will alert [facility] for resumption of service. CM available should other need arise. Plan: Home with [facility]. Date Signed: 12/15/2017 01:41 PM Electronically Signed By:Nika Gibbons RN Intervention Information
[2017-12-16] MEDS ORDERED: AMIODARONE HCL 200 MG TAB PO SCH (09:00)
[2017-12-30] MEDS ORDERED: AMIODARONE HCL 200 MG TAB PO SCH (09:00)
== END 2017-12-15 15:21 | disposition home or self-care (01) | DRG 206 ==
LOC: F2W 19:34 → OBSVTOIN 12-14 18:47
PROVIDERS: ADMIT Internal Medicine; ATTEND Internal Medicine
DX: T82.897A Other specified complication of cardiac prosthetic devices, implants and grafts, initial encounter (principal); N17.9 Acute kidney failure, unspecified; I42.9 Cardiomyopathy, unspecified; I11.0 Hypertensive heart disease with heart failure; I50.30 Unspecified diastolic (congestive) heart failure; Z79.01 Long term (current) use of anticoagulants; I48.2 Chronic atrial fibrillation; F10.11 Alcohol abuse, in remission; Z96.642 Presence of left artificial hip joint; Z59.0 Homelessness; Z95.0 Presence of cardiac pacemaker
CPT/HCPCS: G0378

== ENCOUNTER 2018-05-01 17:40 | Emergency (ER) | payer MEDICAID ==
--- NOTE | 2018-05-01 18:02 | EDPHY ---
H & P Stated Complaint: had a nose bleed Time Seen by Provider: 05/01/18 17:55 HPI/ROS: HPI: This is a 47-year-old male who presents with Chief Complaint: Had a nose bleed Location: Left nostril Quality: Bleeding Duration: 1 week Signs and Symptoms: no fever, no nausea, no vomiting, no photophobia, no noise sensitivity, no neck stiffness, no ear pain, no tinnitus, no nasal congestion, no sinus pressure, no weakness, no radiation, no aura Timing: Acute, intermittent episodes Severity: Mild Context: Patient is followed by [facility], takes Xarelto x1 year status post pacemaker placement presents with intermittent nosebleeds every time 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 He reports he applies pressure and the bleeding will stop. Patient reports that he takes a half a Xarelto tablet he does not have nose bleeds. Modifying Factors: Direct pressure with relief Comment: ROS: A comprehensive 10 system review of systems is otherwise negative aside from elements mentioned in the history of present illness. MEDICAL/SURGICAL/SOCIAL HISTORY: Medical history: atrial flutter, hernia repair, L hip vascular necrosis/ replacement @ [place] [address] ALCOHOLIC -- SOBER FOR 12 YEARS Surgical history: PACEMAKER placed 11/30/17 Social history: Never smoked. Family history noncontributory. CONSTITUTIONAL: Nontoxic appearing middle-aged male, awake and alert, no obvious distress HEENT: Atraumatic and normocephalic, PERRL, EOMI. Nares patent; no rhinorrhea; no active bleeding; no nasal mucosal edema. Tympanic membranes clear. Oropharynx clear, no exudate and moist pink mucosa. Airway patent. No lymphadenopathy. No meningismus. Cardiovascular: Normal S1/S2, regular rate, regular rhythm, without murmur rub or gallop. PULMONARY/CHEST: Symmetrical and nontender. Clear to auscultation bilaterally. Good air movement. No accessory muscle usage. ABDOMEN: Soft, nondistended, nontender, no rebound, no guarding, no peritoneal signs, no masses or organomegaly. No CVAT. EXTREMITIES: 2/2 pulses, strength 5/5, no deformities, no clubbing, no cyanosis or edema. NEUROLOGICAL: no focal neuro deficits. GCS 15. SKIN: Warm and dry, no erythema. no rash. Good capillary refill. Source: Patient Exam Limitations: No limitations - Personal History Current Tetanus/Diphtheria Vaccine: Yes Current Tetanus Diphtheria and Acellular Pertussis (TDAP): Yes Tetanus Vaccine Date: < 10 years - Medical/Surgical History Hx Asthma: No Hx Chronic Respiratory Disease: No Hx Diabetes: No Hx Cardiac Disease: Yes Hx Renal Disease: No Hx Cirrhosis: No Hx Alcoholism: Yes Hx HIV/AIDS: No Hx Splenectomy or Spleen Trauma: No Other PMH: atrial flutter, hernia repair, L hip vascular necrosis/replacement @ [facility] 2017. ALCOHOLIC -- SOBER FOR 12 YEARS. PACEMAKER placed 11/30/17 - Social History Smoking Status: Never smoked Constitutional: Initial Vital Signs Temperature (C) 37.4 C 05/01/18 17:52 Heart Rate 76 05/01/18 17:52 Respiratory Rate 16 05/01/18 17:52 Blood Pressure 93/71 L 05/01/18 17:52 O2 Sat (%) 94 05/01/18 17:52 O2 Delivery Mode Room Air Allergies/Adverse Reactions: No Known Allergies Allergy (Verified 05/01/18 17:51) Home Medications: Medication Instructions Recorded Metoprolol Tartrate [Lopressor 25 25 mg PO BID #60 tab 12/01/17 mg (*)] Torsemide [Demadex] 20 mg PO DAILY10 #30 tab 12/15/17 Xarelto 05/01/18 Medical Decision Making ED Course/Re-evaluation: Blood pressure 93/71 upon arrival. No active epistaxis from left near appreciated. CBC and coag show no signs of anemia. PT and PTT are elevated with an INR 3.6. Advised patient to hold Xarelto until he sees [facility] on Monday. Given nasal clamp. This patient was seen under the supervision of my secondary supervising physician. I evaluated care for this patient independently. Discussed this patient with Dr. Saucedo. Differential Diagnosis: Differential diagnosis includes but is not limited to coagulopathy, digital trauma, sinusitis, hypertension. - Data Points Laboratory Results: Laboratory Results 05/01/18 18:10 05/01/18 05/01/18 18:10 18:10 WBC 5.30 10^3/uL 10^3/uL (3.80-9.50) RBC 4.56 10^6/uL 10^6/uL (4.40-6.38) Hgb 13.0 g/dL L g/dL (13.7-17.5) Hct 40.1 % % (40.0-51.0) MCV 87.9 fL fL (81.5-99.8) MCH 28.5 pg pg (27.9-34.1) MCHC 32.4 g/dL g/dL (32.4-36.7) RDW 17.6 % H % (11.5-15.2) Plt Count 186 10^3/uL 10^3/uL (150-400) MPV 11.4 fL fL (8.7-11.7) Neut % (Auto) 73.8 % % (39.3-74.2) Lymph % (Auto) 16.8 % % (15.0-45.0) [place] % (Auto) 7.7 % % (4.5-13.0) Eos % (Auto) 1.1 % % (0.6-7.6) Baso % (Auto) 0.4 % % (0.3-1.7) Nucleat RBC Rel Count 0.0 % % (0.0-0.2) Absolute Neuts (auto) 3.91 10^3/uL 10^3/uL (1.70-6.50) Absolute Lymphs (auto) 0.89 10^3/uL L 10^3/uL (1.00-3.00) Absolute Monos (auto) 0.41 10^3/uL 10^3/uL (0.30-0.80) Absolute Eos (auto) 0.06 10^3/uL 10^3/uL (0.03-0.40) Absolute Basos (auto) 0.02 10^3/uL 10^3/uL (0.02-0.10) Absolute Nucleated RBC 0.00 10^3/uL 10^3/uL (0-0.01) Immature Gran % 0.2 % % (0.0-1.1) Immature Gran # 0.01 10^3/uL 10^3/uL (0.00-0.10) PT 35.6 SEC H SEC (12.0-15.0) INR 3.60 H (0.83-1.16) APTT 45.5 SEC H SEC (23.0-38.0) Departure - Departure Disposition: Home, Routine, Self-Care Clinical Impression: Chronic anticoagulation, Left-sided epistaxis Condition: Good Instructions: Rivaroxaban (By mouth), Nosebleed (ED) Additional Instructions: Please apply Vaseline to both nostrils or use nasal saline rinse to prevent nasal dryness. Avoid any digital manipulation of your nose. Follow-up with [facility] in 2-3 days regarding coagulopathy, nosebleeds and taking Xarelto and the dosage. Follow-up with your primary care provider in 1 week. Referrals: James Muse MD [Primary Care Provider] - As per Instructions [facility] [Provider Group] - 05/04/18
[2018-05-01 18:34] LABS: PLATELET COUNT 186 10^3/uL (150-400)
[2018-05-01 18:42] LABS: INR 3.6 (0.83-1.16); PROTIME(PATIENT) 35.6 SEC (12.0-15.0)
[2018-05-01 18:58] VITALS: BP 112/73
== END 2018-05-01 18:58 | disposition home or self-care (01) ==
DX: R04.0 Epistaxis (principal); Z79.01 Long term (current) use of anticoagulants; Z95.0 Presence of cardiac pacemaker